=== PATIENT | male | born 1965 | race Caucasian/White ===

== ENCOUNTER 2022-12-18 06:49 | Inpatient (IN) | payer OTHER, SELFPAY ==
[2022-12-18] VITALS (10 sets, daily range): BP systolic 87–153; BP diastolic 49–88; PULSE 118–128; RESP 14–28; TEMP 35.9–37.1; O2SAT 92–100; BMI 21.2
--- NOTE | ~2022-12-18 | XR_ITS ---
XR abdomen obstructive series DATE: 12/19/2022 08:34 INDICATION: Abdominal pain and distention TECHNIQUE: Portable supine and upright AP views COMPARISON: 12/18/2022 CT abdomen pelvis FINDINGS: There is a prominent amount of fecal material within the colon. No bowel obstruction or int raperitoneal free air is detected. No visceromegaly is noted. No significant abnormal calcification i s identified. Bases appear clear. There is a nasogastric tube, distal tip overlying the distal body of the stomach. IMPRESSION: NG tube in distal body of stomach Prominent amount of fecal material in the colon Reviewed, dictated and finalized at [facility] Reviewed, dictated and finalized at [facility].
--- NOTE | ~2022-12-18 | XR_ITS ---
XR chest 1V portable DATE: 12/19/2022 05:23 INDICATION: Cough TECHNIQUE: Portable upright AP chest on 12/19/2022 at 0503 hours COMPARISON: None FINDINGS: There are patchy bilateral pulmonary infiltrates and/or mass densities. Bilateral pneumonia is suspected. Continued radiographic follow-up is recommended to exclude any pulmonary mass lesion. The lungs appear moderately hyperinflated. No pleural effusion is noted. Heart size is normal. NG tube in stomach. Osteopenia. Old left rib fractures. IMPRESSION: Patchy bilateral pulmonary infiltrates and/or mass densities. Bilateral pneumonia is susp ected. Continued radiographic follow-up is recommended to ensure clearing and to exclude any pulmonar y mass lesion Reviewed, dictated and finalized at [facility]. IMPRESSION: Patchy bilateral pulmonary infiltrates and/or mass densities. Bilat eral pneumonia is suspected. Continued radiographic follow-up is recommended to ensure clearing and to exclude any pulmonary mass lesion
--- NOTE | ~2022-12-18 | XR_ITS ---
Portable chest x-ray Comparison: 12/19/2022 Clinical History: Infiltrate Findings: Mild patchy haziness and interstitial prominence in the lungs. No pleural effusion or pneu mothorax. Cardiomediastinal silhouette is stable. Bones and soft tissues are unremarkable. Impression: Patchy pulmonary edema versus infection/pneumonia bilaterally. Correlate clinically. Reviewed, dictated and finalized at [facility]. Impression: Patchy pulmonary edema versus infection/pneumonia bilaterally. Correlate clinic ally.
--- NOTE | ~2022-12-18 | XR_ITS ---
XR_KUBGTUBINS_CR DATE: 12/18/2022 10:13 INDICATION: NG tube placement TECHNIQUE: Portable AP upright view on 12/28/2022 1011 hours COMPARISON: None FINDINGS: A nasogastric tube is noted passing into the distal body of stomach, distal tip not include d in the examination. IMPRESSION: NG tube passing at least as far as the distal body of the stomach, distal tip not include d in the examination Reviewed, dictated and finalized at [facility] Reviewed, dictated and finalized at [facility]. IMPRESSION: NG tube passing at least as far as the distal body of the stomach, distal tip not included in the examination
--- NOTE | ~2022-12-18 | CT_ITS ---
EXAMINATION: CT abdomen pelvis w con DATE: 12/18/2022 09:27 INDICATION: Right upper quadrant abdominal pain TECHNIQUE: Computed tomography (CT) of the abdomen and pelvis was performed with 100 CC Omnipaque 350 intravenous contrast. Automated exposure control and iterative reconstruction technique were employe d. Exam dose: 356.13 mGy-cm total exam DLP. COMPARISON: None. FINDINGS: The lung bases are clear. Normal heart size. No pericardial or pleural effusion. Small sliding hiatal hernia. There is an approximately 4 x 4.5 cm thin-walled cyst with some wall calcification in the pancreatic tail, most likely a pancreatic pseudocyst. The liver, gallbladder, bile ducts, spleen, pancreas, pancreatic duct are otherwise unremarkable. Normal morphology of the adrenal glands. 7.7 mm posterior lower pole left renal cyst. Anterior 4.5 mm mid left renal cyst. 5.4 mm posterior mid right renal cyst. No urinary tract calculus or hydroureteronephrosis. The urinary bladder is unremarkable. Moderate pro state enlargement. There is extensive atherosclerotic calcification but normal caliber of the abdominal aorta. There is atherosclerotic calcification of the origins of the celiac and superior mesenteric and parti cularly both renal arteries. There is prominent bilateral iliac artery calcification. No intraperiton eal or retroperitoneal or pelvic mass lesion or adenopathy or ascites. There is a prominent amount of fecal material throughout the colon but no bowel obstruction. Divertic ulosis of the colon; no CT evidence of diverticulitis. Old posterolateral left eighth and ninth rib fractures. IMPRESSION: Small sliding hiatal hernia 4 x 4.5 cm pancreatic pseudocyst Small bilateral renal cysts Diverticulosis of the colon Reviewed, dictated and finalized at [facility] Reviewed, dictated and finalized at [facility].
[2022-12-18 07:18] LABS: Basophils Absolute Auto 0.1 K/mm3 (0.0-0.1); Basophils Percent Auto 0.4 % (0.2-1.2); Hematocrit 57.5 % (42.0-52.0); Hemoglobin 18.4 g/dL (14.0-18.0); Immature Granulocyte Absolute 0.23 K/mm3 (0.00-0.031); Immature Granulocyte Percent A 1.1 % (0-0.5); Lymphocytes Absolute Auto 2.37 K/mm3 (0.9-3.2); Lymphocytes Percent Auto 11.2 % (18.3-44.2); Mean Platelet Volume 9.2 fl (7.4-10.4); Monocytes Absolute Auto 1.2 K/mm3 (0.1-0.6); Monocytes Percent Auto 5.5 % (2.6-8.5); Neutrophils Absolute Auto 17.3 K/mm3 (1.3-6.7); Neutrophils Percent Auto 81.8 % (45.5-73.1); Platelet Count Result 303 k/mm3 (150-375); Red Blood Count 5.75 M/mm3 (4.6-6.20); Red Cell Distribution Width 13.2 % (11.5-14.5); White Blood Count 21.2 K/mm3 (4.5-10.0)
--- NOTE | 2022-12-18 07:22 | PC.NURSE ---
Pt yelling in triage. Pt wanted to sit next to triage desk, asked to move to waiting area due to patient privacy at desk. Pt started yelling that he is fucked up on pain pills and wants to lay down, called RN a fucking prick and told staff we are treating him like shicyrus . Pt started muttering profanity, was asked by staff to not use profanity, as there are children in the waiting room as well. Pt then yelled loudly to get him a room . Assured by RN that we are working as quickly as possible to see patients.
[2022-12-18 07:25] LABS: Appearance Urine Clear (Clear); Bacteria Urine None Seen /hpf; Bilirubin Urine Negative (Negative); Blood Urine Trace (Negative); Color Urine Yellow (Yellow); Glucose Urine UA 3+ mg/dL (Negative); Ketones Urine 4+ mg/dL (Negative); Leukocyte Esterase Ur Negative LEU/UL (Negative); Nitrate Urine Negative (Negative); Non Pathogenic Casts 0-2; Protein Urine 1+ mg/dL (Negative); RBC Urine 0-2 /hpf (0-2); Specific Grav Ur 1.027 (1.001-1.035); Squamous Epithelial Cell Urine None seen /hpf (Few); Urobilinogen Urine 0.2 mg/dL (<2.0); WBC Urine 0-5 /hpf
[2022-12-18 07:42] LABS: Add Urine Microscopic? YES
[2022-12-18] MEDS: ONDANSETRON INJ 4 MG/2 ML VIAL IV PUSH ×2 (08:05→18:45)
[2022-12-18] MEDS: SODIUM CHLORIDE 0.9% IV 1,000 ML 999 ML IV CONT ×4 (08:05→13:49)
[2022-12-18] MEDS: MORPHINE SULFATE (*CRX) 4 MG/ML INJ IV PUSH ×3 (08:06→21:59)
[2022-12-18 08:11] LABS: Alanine Aminotransferase 26 U/L (6-50); Albumin Level 5.2 g/dL (3.5-5.1); Alkaline Phosphatase 114 U/L (38-126); Aspartate Amino Transferase 27 U/L (17-59); Bilirubin,Total 0.8 mg/dL (0.2-1.3); Blood Urea Nitrogen 33 mg/dL (9-20); Calcium 10.3 mg/dL (8.4-10.2); Carbon Dioxide < 5 mmol/L (22-30); Chloride 91 mmol/L (98-107); Estimated CRCL calculation 52 ml/min; Estimated Glomerular Filt Rate > 60; Glucose 410 mg/dL (65-110); Lipase 37 U/L (23-300); Potassium 5.2 mmol/L (3.4-5.0); Sodium 129 mmol/L (137-145)
--- NOTE | 2022-12-18 08:13 | PC.NURSE ---
Pt yelling out wanting more pain meds. Explained to pt that he had Morphine 5 min ago and needs to give it time to work.
[2022-12-18 09:10] LABS: Alveolar/Arterial O2 Gradient 22.7 mmHg; Base Excess ABG -25.1 mEq/l (+/-2.0); Carboxyhemoglobin 1.7 % THb (0-2.0); Fractional Inspired Oxygen 21 %; HCO3 ABG 4.1 mEq/l (22.0-26.0); Methemoglobin ABG 0.3 %THb (0-1.5); Oxygen Content ABG 22.4 %vol (16.0-22.0); Oxygen Saturation ABG 95.2 % (95.0-100.0); PO2 ABG 107.5 mmHg (80.0-100.0); PO2 FiO2 Ratio Arterial Blood 5.12 %; Total Hemoglobin 16.9 g/dL (12.0-18.0)
[2022-12-18 09:12] LABS: Modified Allen's Test Pass; PCO2 ABG 16.3 mmHg (35.0-45.0); Site Drawn LEFT RADIAL; pH ABG 7.018 (7.350-7.450)
--- NOTE | 2022-12-18 10:00 | PC.NURSE ---
No ICU Bed availability at [facility]
[2022-12-18] MEDS: BENZOCAINE/TETRACAINE SPRAY (*SP) 56 ML AEROSOL 1 SPRAY (10:09)
--- NOTE | 2022-12-18 10:39 | ED.ABDPAIN ---
HPI - Abdominal Pain General Chief Complaint: Abdominal Pain Stated Complaint: abdominal pain x2 weeks Time Seen by Provider: 12/18/22 07:52 History of Present Illness HPI narrative: Patient is a 57-year-old male who presents ER with epigastric abdominal pain. Ongoing over the last 2 weeks. More severe over the last 2 days. Reports he cannot have a bowel movement or pass gas. He has not been vomiting but has had some dry heaves. He has history of diabetes and reports his blood sugars have been elevated despite taking metformin. [facility]. No chest pain or chest pressure. No fevers or chills or sweats. No loss of consciousness. Denies history of previous abdominal surgery or history of bowel obstruction. Related Data Allergies Allergy/AdvReac Type Severity Reaction Status Date / Time No Known Allergies Allergy Verified 12/18/22 07:46 Review of Systems Review of Systems: All systems reviewed & are unremarkable except as noted in HPI and below Constitutional: Constitutional: Denies chills, Reports fatigue and Denies fever(s) ENT: Denies nasal congestion and Denies sore throat Cardiovascular: Cardiovascular: Denies chest pain, Denies rapid heart rate and Denies radiating jaw, neck or arm pain Respiratory: Respiratory: Denies cough, Denies dyspnea and Denies wheezing Gastrointestinal: Gastrointestinal: Reports abdominal pain, Reports constipation, Denies diarrhea and Reports nausea Genitourinary: Genitourinary: Denies dysuria and Denies urinary frequency Musculoskeletal: Musculoskeletal: Reports no additional musculoskeletal complaints Neurologic: Reports system reviewed and no additional complaints, except as documented PMFSH Past Medical History Medical History (Updated 12/18/22 @ 12:42 by Musa Swartz MD) Diabetes Surgical History Surgical History (Updated 12/18/22 @ 12:42 by Musa Swartz MD) No history of previous surgery Exam Narrative: GENERAL: Uncomfortable-appearing, well-nourished, and in mild distress. HEAD: Normocephalic, atraumatic. EYES: PERRL and EOMI. ENT: Dry mucous membranes. NECK: Supple. CHEST: Clear to auscultation. No respiratory distress. HEART: Tachycardic and regular. Normal peripheral pulses. ABDOMEN: Soft, epigastric tenderness with guarding, nondistended, normal active bowel sounds. EXTREMITIES: Normal range of motion. No edema. SKIN: Warm, dry, no rash. NEURO: Alert and oriented x3. PSYCH: Normal mood and affect. Course Course Emergency Course: Patient with a distended abdomen on CT though there is no other acute process seen. NG tube placed and over 1 L of dark contents have been removed. Concern for possible bleeding. Patient is hemoconcentrated. He has received 2 L of IV fluid. I discussed the case with the collar worker who would like 1/3 L of fluid bolus and then the patient also be started on an insulin drip. The hospitalist service has been contacted about management the patient as well. The [facility] was contacted prior to admission and reported they had no ICU beds for patients. Vital Signs Vital signs: Vital Signs Temperature 96.7 F L 12/18/22 06:56 Pulse Rate 118 H 12/18/22 06:56 Respiratory Rate 16 12/18/22 06:56 Blood Pressure 134/63 12/18/22 06:56 Pulse Oximetry 98 12/18/22 06:56 Oxygen Delivery Room Air 12/18/22 06:56 Temperature 96.7 F L 12/18/22 06:56 Pulse Rate 127 H 12/18/22 12:16 Respiratory Rate 20 12/18/22 12:16 Blood Pressure 113/88 12/18/22 12:16 Pulse Oximetry 99 12/18/22 12:16 Oxygen Delivery Room Air 12/18/22 06:56 MDM - Abdominal Pain Lab Data 12/18/22 07:04 12/18/22 07:04 Labs: Lab Results 12/18/22 12/18/22 12/18/22 Range/Units 07:04 07:05 09:09 WBC 21.2 H (4.5-10.0) K/mm3 RBC 5.75 (4.6-6.20) M/mm3 Hgb 18.4 H (14.0-18.0) g/dL Hct 57.5 H (42.0-52.0) % MCV 100.0 (80-100) fl MCH 32.
[2022-12-18 10:40] LABS: Glucose Point of Care 364 mg/dl (65-105)
[2022-12-18] MEDS: PANTOPRAZOLE SODIUM IV 40 MG VIAL 80 MG IV PUSH (11:00)
[2022-12-18] MEDS: PANTOPRAZOLE SODIUM IV 80 MG in SODIUM CHLORIDE 0.9% IV 500 ML 50 MG IV CONT (11:06)
[2022-12-18] MEDS: INSULIN HUMAN REGULAR (*BKC) 100 UNITS in SODIUM CHLORIDE 0.9% IV 99 ML 5.9 UNITS IV CONT (11:11)
[2022-12-18] MEDS: INSULIN HUMAN REGULAR (*BKC) 100 UNITS/ML 9 UNITS IV PUSH (11:12)
[2022-12-18 11:33] LABS: Lactic Acid Reflex 1.2 mmol/L (0.7-2.0)
--- NOTE | 2022-12-18 12:46 | ADMGEN ---
This patient, Sukh Nixon, was admitted to Intensive Care Unit-8. Patient/family oriented to hospital policies and general routines including ID bracelet, bed and alarms, visiting hours, pain management, procedures, bathroom and other care routines, personal items, smoking policy, room service/diet, and visiting hours. Information on how to activate the Rapid Response Team has been discussed. Patient/Family are encouraged to report perceived risks to care and to ask questions if they do not understand what they are told or what they should do.
--- NOTE | 2022-12-18 13:26 | WPDCNINT ---
Assessment and Plan Assessment and plan (1) DKA (diabetic ketoacidosis): Code(s): E11.10 - Type 2 diabetes mellitus with ketoacidosis without coma Status: Acute Assessment and Plan: Patient presented with generalized weakness, nausea, vomiting, abdominal pain -was found to have elevated blood sugars, anion gap metabolic acidosis -was with the DKA, given 3 L IV fluid bolus in the ER and started on insulin infusion per DKA protocol and transferred to ICU for further manage -blood sugars remain elevated, continue insulin infusion per DKA protocol -will transition to long-acting insulin and sliding scale insulin once anion gap is closed -currently NPO except ice chips -will give additional IV fluid bolus in the ICU (which will be his 4th Liter of IV fluids) -have ordered HbA1c (2) Abdominal pain: Code(s): R10.9 - Unspecified abdominal pain Status: Acute Assessment and Plan: Patient stated that he has had abdominal pain for the last 3 weeks which has worsened in the last 3 days along with nausea, vomiting. Decreased p.o. intake, denies any diarrhea, fevers or chills -NG tube inserted in the ER, drained 1.5 L of gastric contents -gastric drainage was coffee-ground so patient was started on Protonix infusion -CBC seems to be hemoconcentrated 12/18: CT scan of the abdomen and pelvis shows small sliding scale hernia, 4 4 x 4.5 cm pancreatic pseudocyst, small bilateral renal cysts, diverticulosis of the colon. Prominent amount of fecal material throughout the colon but no bowel obstruction. (3) Nausea and vomiting: Code(s): R11.2 - Nausea with vomiting, unspecified Status: Acute Assessment and Plan: Nausea and vomiting have resolved (4) Chronic pancreatitis: Code(s): K86.1 - Other chronic pancreatitis Status: Acute Assessment and Plan: Patient has a history of chronic pain naris secondary to possible alcoholism in the past. Patient denies any alcohol for the last 7 years -he states he is on pancreatic enzymes (5) Tobacco abuse: Code(s): Z72.0 - Tobacco use Status: Acute Assessment and Plan: Patient smokes 2 packets per day for many years. Have counseled him on cessation of smoking, he did not feel overly interested in that discussion, though I did t explained to him about the negative of tobacco usage (6) Marijuana use: Code(s): F12.90 - Cannabis use, unspecified, uncomplicated Status: Acute Assessment and Plan: Also counseled him on cessation of marijuana use Plan DVT prophylaxis: Lovenox Stress ulcer prophylaxis: Protonix infusion Nutrition: NPO for now Code Status: Full code Critical Care Time Spent: 48 minutes Due to a high probability of clinically significant, life threatening deterioration, the patient required my highest level of preparedness to intervene emergently and I personally spent this critical care time directly and personally managing the patient. This critical care time included obtaining a history; examining the patient; pulse oximetry; ordering and review of studies; arranging urgent treatment with development of a management plan; evaluation of patient's response to treatment; frequent reassessment; and discussions with other providers. It was exclusive of separately billable procedures and treating other patients and teaching time. Please see Assessment and Plan section and the rest of the note for further information on patient assessment and treatment This dictation may have been done utilizing a voice recognition system. Attempts have been made to correct errors. However, there may be uncorrected grammatical, spelling, and recognitions errors present. Mannequin Mounter Consult Note Consult date: 12/18/22 Reason for consult: Diabetic ketoacidosis, nausea, vomiting, abdominal pain HPI: Sukh Nixon is a 57 year old male with significant past medical history of diabetes on metformin, history of pancr
--- NOTE | 2022-12-18 13:35 | PM.IMHP ---
H&P: HPI History of Present Illness Date/Time: 12/18/22 13:35 Chief Complaint: Abdominal pain. Narrative: This is a 57-year-old male smoker with history of stroke, seizures, chronic pancreatitis, hypertension, type 2 diabetes mellitus and chronic obstructive pulmonary disease who presented to the emergency department via EMS from home for evaluation of abdominal pain. The patient provides the following history. He endorses burning discomfort in the epigastric region for the last couple of weeks however symptoms have gotten worse these last 2 days. He has nausea, dry heaves, and more recently he has started vomiting up dark brown emesis. He endorses constipation and when he does have a bowel movement it is usually only a small amount however he reports that his stools are dark black. He thinks he has an ulcer and believes that he has a remote history of the same. He does take 2 Aleve b.i.d. in addition to ibuprofen daily for arthritic pain. He drinks a lot of coffee though he is unable to qualify. He used to drink heavily but has abstained for the last 7 years. Additionally his glucose has been running high despite taking his metformin as prescribed. He also reports polydipsia and polyuria. His glucose has been running high despite being compliant with his metformin and he endorses polydipsia and polyuria. Preliminary workup in the ED is consistent with diabetic ketoacidosis (pH of 7.018, glucose of 410, elevated anion gap, ketonuria) and he has been admitted to the ICU on an insulin drip. Review of Systems Review of Systems: Twelve systems were reviewed. Reports some weight loss though he cannot qualify. No fever, chills, or sweats. Denies cold and flu symptoms. No chest pain. He does feel a bit short of breath. Denies cough. No lower extremity edema or orthopnea. Denies dysuria. Except as documented, all other systems were reviewed and are negative. [facility] Past Medical History Medical History (Updated 12/18/22 @ 15:16 by Jeannette Champion PA-C) Cerebrovascular accident Chronic pancreatitis Hypertension Marijuana use Tobacco abuse Type 2 diabetes mellitus Surgical History Surgical History No history of previous surgery Family History Family History (Updated 12/18/22 @ 23:17 by Jeannette Champion PA-C) Other Diabetes mellitus Social History Social History (Updated 12/18/22 @ 15:00 by Jeannette Champion PA-C) Social History: Surrogate medical decision maker: Nitin Nixon, son. Code status: Full code. Smoking packs per day: 3 Smoking cigarettes per day: 60.0 Years smoked: 45 Smoking pack-years: 135.00 Smoking status: Current every day smoker Alcohol intake: never Substance use type: marijuana Lack of Transportation: No Lack of Food: Never True Current Housing: I Have Housing Concerned About Future Housing: No Difficulty Paying Gas/Electric Bills: No Difficulty Paying for Meds: No Currently Unemployed: No Education: Grade School Difficulty w/ Childcare or Family Care: No Spiritual care concerns: No Meds Home Medications and Allergies Home Medications Medication Instructions Recorded Confirmed Type Depakote ER 2,000 mg PO HS 12/18/22 12/18/22 History albuterol 90 mcg/actuation aerosol 90 mcg inhalation QID PRN 12/18/22 12/18/22 History inhaler Shortness Of Breath amlodipine 5 mg tablet 5 mg PO DAILY 12/18/22 12/18/22 History atorvastatin 80 mg tablet 80 mg PO HS 12/18/22 12/18/22 History cyclobenzaprine 10 mg tablet 10 mg PO TID PRN Muscle Spasm 12/18/22 12/18/22 History empagliflozin 25 mg tablet 25 mg PO DAILY 12/18/22 12/18/22 History ferrous sulfate 325 mg (65 mg 325 mg PO BID 12/18/22 12/18/22 History iron) tablet fluticasone 250 mcg-salmeterol 50 250 inh inhalation BID 12/18/22 12/18/22 History mcg/dose blistr powdr for inhalation folic acid 1 mg tablet 1 mg PO DAILY 12/18/22 12/18/22 Histo
[2022-12-18] MEDS: SODIUM CHLORIDE 0.9% IV 1,000 ML 125 ML IV CONT (13:49)
[2022-12-18 14:26] LABS: Blood Urea Nitrogen 31 mg/dL (9-20); Carbon Dioxide < 5 mmol/L (22-30); Chloride 105 mmol/L (98-107); Estimated CRCL calculation 53 ml/min; Estimated Glomerular Filt Rate > 60; Glucose 240 mg/dL (65-110); Magnesium 2.5 mg/dL (1.6-2.3); Phosphorus 5.4 mg/dL (2.5-4.5); Potassium 4.9 mmol/L (3.4-5.0); Sodium 138 mmol/L (137-145)
[2022-12-18 14:29] LABS: Glucose Point of Care 275 mg/dl (65-105)
[2022-12-18 14:29] LABS: Glucose Point of Care 308 mg/dl (65-105)
[2022-12-18] MEDS: INSULIN HUMAN REGULAR (*BKC) 100 UNITS in SODIUM CHLORIDE 0.9% IV 99 ML 7.4 UNITS IV CONT (14:30)
[2022-12-18 15:12] LABS: Hemoglobin A1C 12.4 % (<5.7)
[2022-12-18] MEDS: KCL 20 MEQ/D5/0.45% SOD CHL 1,000 ML 150 ML IV CONT ×2 (15:42→23:11)
[2022-12-18] MEDS: NICOTINE (*PBKC) 21 MG PATCH 1 PATCH TRANSDERM (15:43)
[2022-12-18 17:00] LABS: Glucose Point of Care 146 mg/dl (65-105)
[2022-12-18 17:00] LABS: Glucose Point of Care 164 mg/dl (65-105)
[2022-12-18 17:51] LABS: Glucose Point of Care 165 mg/dl (65-105)
[2022-12-18 18:26] LABS: Anion Gap 20 mmol/L (8-16); Blood Urea Nitrogen 22 mg/dL (9-20); Carbon Dioxide 6 mmol/L (22-30); Chloride 111 mmol/L (98-107); Estimated CRCL calculation 74 ml/min; Estimated Glomerular Filt Rate > 60; Glucose 166 mg/dL (65-110); Potassium 4.7 mmol/L (3.4-5.0); Sodium 137 mmol/L (137-145)
[2022-12-18 18:35] LABS: Valproic Acid 33.9 ug/mL (50-120)
[2022-12-18 19:13] LABS: Glucose Point of Care 190 mg/dl (65-105)
[2022-12-18] MEDS: PANTOPRAZOLE SODIUM IV 40 MG VIAL IV PUSH (20:29)
[2022-12-18 20:45] LABS: Glucose Point of Care 200 mg/dl (65-105)
[2022-12-18 21:30] LABS: Glucose Point of Care 209 mg/dl (65-105)
[2022-12-18 22:25] LABS: Glucose Point of Care 212 mg/dl (65-105)
[2022-12-18 23:19] LABS: Anion Gap 14 mmol/L (8-16); Blood Urea Nitrogen 17 mg/dL (9-20); Calcium 7.7 mg/dL (8.4-10.2); Carbon Dioxide 9 mmol/L (22-30); Chloride 111 mmol/L (98-107); Estimated CRCL calculation 85 ml/min; Estimated Glomerular Filt Rate > 60; Glucose 195 mg/dL (65-110); Sodium 134 mmol/L (137-145)
[2022-12-18 23:43] LABS: Glucose Point of Care 213 mg/dl (65-105)
[2022-12-19] VITALS (17 sets, daily range): BP systolic 134–186; BP diastolic 52–93; PULSE 88–122; RESP 13–24; TEMP 36.4–37.1; O2SAT 89–94
[2022-12-19] MEDS: levETIRAcetam 500 MG TABLET 1000 MG PO ×3 (00:17→20:03)
[2022-12-19] MEDS: PROPRANOLOL HCL 20 MG TABLET PO ×3 (00:19→20:04)
[2022-12-19] MEDS: DIVALPROEX SODIUM ER 500 MG TAB.24H 2000 MG PO ×2 (00:20→20:03)
[2022-12-19] MEDS: LATANOPROST 0.005% OP SOLN 2.5 ML BTL 1 DROP EACH EYE ×2 (00:21→20:04)
[2022-12-19] MEDS: MORPHINE SULFATE (*CRX) 4 MG/ML INJ 2 MG IV PUSH ×3 (00:21→06:28)
[2022-12-19 00:38] LABS: Glucose Point of Care 210 mg/dl (65-105)
[2022-12-19 01:19] LABS: Glucose Point of Care 231 mg/dl (65-105)
[2022-12-19 01:35] LABS: Gastric Negative Control Negative; Gastric Positive Control Positive; Occult Blood Gastric Fluid Positive; pH Gastric Fluid 4 (1-8)
[2022-12-19 01:59] LABS: Glucose Point of Care 239 mg/dl (65-105)
[2022-12-19 02:33] LABS: Basophils Percent Auto 0.2 % (0.2-1.2); Eosinophils Percent Auto 0.2 % (0-4.4); Hematocrit 46.8 % (42.0-52.0); Hemoglobin 15.5 g/dL (14.0-18.0); Immature Granulocyte Absolute 0.03 K/mm3 (0.00-0.031); Immature Granulocyte Percent A 0.2 % (0-0.5); Lymphocytes Absolute Auto 0.49 K/mm3 (0.9-3.2); Mean Corpuscular HGB Conc 33.1 g/dl (32-36); Mean Corpuscular Hemoglobin 32.2 pg (26-34); Mean Corpuscular Volume 97.1 fl (80-100); Mean Platelet Volume 8.8 fl (7.4-10.4); Monocytes Absolute Auto 1.3 K/mm3 (0.1-0.6); Monocytes Percent Auto 10.3 % (2.6-8.5); Neutrophils Absolute Auto 10.4 K/mm3 (1.3-6.7); Neutrophils Percent Auto 85.1 % (45.5-73.1); Platelet Count Result 211 k/mm3 (150-375); Red Blood Count 4.82 M/mm3 (4.6-6.20); Red Cell Distribution Width 13.3 % (11.5-14.5); White Blood Count 12.2 K/mm3 (4.5-10.0)
[2022-12-19 02:53] LABS: Alanine Aminotransferase 19 U/L (6-50); Albumin Level 3.6 g/dL (3.5-5.1); Alkaline Phosphatase 68 U/L (38-126); Anion Gap 16 mmol/L (8-16); Aspartate Amino Transferase 23 U/L (17-59); Bilirubin,Total 0.4 mg/dL (0.2-1.3); Blood Urea Nitrogen 14 mg/dL (9-20); Calcium 7.7 mg/dL (8.4-10.2); Carbon Dioxide 10 mmol/L (22-30); Chloride 111 mmol/L (98-107); Estimated CRCL calculation 85 ml/min; Estimated Glomerular Filt Rate > 60; Glucose 206 mg/dL (65-110); Lipase 17 U/L (23-300); Magnesium 2.2 mg/dL (1.6-2.3); Phosphorus 2.2 mg/dL (2.5-4.5); Potassium 4.7 mmol/L (3.4-5.0); Sodium 137 mmol/L (137-145)
[2022-12-19 02:54] LABS: Lactic Acid Reflex 0.6 mmol/L (0.7-2.0)
[2022-12-19 03:04] LABS: Influenza A QL RT-PCR Negative (Negative); Influenza B QL RT-PCR Negative (Negative); SARS-CoV-2 RNA PCR Negative (Negative)
[2022-12-19 03:30] LABS: Glucose Point of Care 225 mg/dl (65-105)
[2022-12-19 04:36] LABS: Glucose Point of Care 250 mg/dl (65-105)
[2022-12-19 05:39] LABS: Glucose Point of Care 228 mg/dl (65-105)
[2022-12-19 05:50] LABS: Appearance Urine Clear (Clear); Bacteria Urine None Seen /hpf; Bilirubin Urine Negative (Negative); Blood Urine Trace (Negative); Color Urine Yellow (Yellow); Glucose Urine UA 3+ mg/dL (Negative); Ketones Urine 3+ mg/dL (Negative); Leukocyte Esterase Ur Negative LEU/UL (NEGATIVE); Nitrate Urine Negative (Negative); Non Pathogenic Casts 0-2; Protein Urine Trace mg/dL (Negative); RBC Urine 0-2 /hpf (0-2); Specific Grav Ur 1.028 (1.001-1.035); Squamous Epithelial Cell Urine None seen /hpf (Few); Urobilinogen Urine 0.2 mg/dL (<2.0); WBC Urine 0-5 /hpf (0-3)
[2022-12-19 05:56] LABS: Add Urine Microscopic? YES
[2022-12-19 06:24] LABS: Glucose Point of Care 232 mg/dl (65-105)
[2022-12-19] MEDS: KCL 20 MEQ/D5/0.45% SOD CHL 1,000 ML 150 ML IV CONT ×3 (06:26→18:39)
[2022-12-19 06:51] LABS: Anion Gap 13 mmol/L (8-16); Blood Urea Nitrogen 13 mg/dL (9-20); Carbon Dioxide 14 mmol/L (22-30); Chloride 110 mmol/L (98-107); Estimated CRCL calculation 85 ml/min; Estimated Glomerular Filt Rate > 60; Glucose 206 mg/dL (65-110); Potassium 4.3 mmol/L (3.4-5.0); Sodium 137 mmol/L (137-145)
[2022-12-19 07:30] LABS: Glucose Point of Care 237 mg/dl (65-105)
[2022-12-19] MEDS: FLUTICASONE/SALMETEROL 115-21 MCG INHALER 1 PUFF 2 PUFF INHALATION ×2 (07:57→20:15)
[2022-12-19] MEDS: UMECLIDINIUM BROMIDE 62.5 MCG ELLIPTA 1 PUFF INHALATION (07:58)
[2022-12-19 08:42] LABS: Glucose Point of Care 228 mg/dl (65-105)
--- NOTE | 2022-12-19 09:25 | WPDINTPN ---
Progress Note: A&P Assessment and Plan (1) DKA (diabetic ketoacidosis): Code(s): E11.10 - Type 2 diabetes mellitus with ketoacidosis without coma Status: Acute Assessment and Plan: Patient presented with generalized weakness, nausea, vomiting, abdominal pain -was found to have elevated blood sugars, anion gap metabolic acidosis -was with the DKA, received adequate IV fluids in the ER and ICU -continue insulin infusion per DKA protocol since anion gap is still elevated -will transition to long-acting insulin and sliding scale insulin once anion gap is closed -currently NPO except ice chips -patient remains tachycardic with elevated anion gap, approx 1 L positive fluid balance, will give additional IV fluids this morning -12/18 hemoglobin A1c is 12.4 this admit (2) Abdominal pain: Code(s): R10.9 - Unspecified abdominal pain Status: Acute Assessment and Plan: Patient stated that he has had abdominal pain for the last 3 weeks which has worsened in the last 3 days along with nausea, vomiting. Decreased p.o. intake, denies any diarrhea, fevers or chills -NG tube inserted in the ER, drained 1.5 L of gastric contents -gastric drainage was coffee-ground so patient was started on Protonix infusion -gastric occult blood is positive -CBC stable -GI has been consulted -obstructive series shows stool in the bowels, started Reglan as patient could have gastroparesis or decreased bowel motility secondary to uncontrolled diabetes 12/18: CT scan of the abdomen and pelvis shows small sliding scale hernia, 4 4 x 4.5 cm pancreatic pseudocyst, small bilateral renal cysts, diverticulosis of the colon. Prominent amount of fecal material throughout the colon but no bowel obstruction. (3) Nausea and vomiting: Code(s): R11.2 - Nausea with vomiting, unspecified Status: Acute Assessment and Plan: Nausea and vomiting have resolved (4) Chronic pancreatitis: Code(s): K86.1 - Other chronic pancreatitis Status: Acute Assessment and Plan: Patient has a history of chronic pain naris secondary to possible alcoholism in the past. Patient denies any alcohol for the last 7 years -he states he is on pancreatic enzymes (5) Tobacco abuse: Code(s): Z72.0 - Tobacco use Status: Acute Assessment and Plan: Patient smokes 2 packets per day for many years. Have counseled him on cessation of smoking, he did not feel overly interested in that discussion, though I did t explained to him about the negative of tobacco usage (6) Marijuana use: Code(s): F12.90 - Cannabis use, unspecified, uncomplicated Status: Acute Assessment and Plan: Also counseled him on cessation of marijuana use (7) Sepsis: Code(s): A41.9 - Sepsis, unspecified organism Status: Acute Assessment and Plan: Patient has been tachycardic, elevated WBC count -chest x-ray this morning: Patchy bilateral pulmonary infiltrates and/or mass densities. Bilateral pneumonia is suspected. Continued radiographic follow-up is recommended to ensure clearing and to exclude any pulmonary mass lesion? -12/19: Lactic acid was 0.6 Will start patient on ceftriaxone and azithromycin (12/19) Plan DVT prophylaxis: Lovenox Stress ulcer prophylaxis: Protonix IV q.12 hours Nutrition: NPO for now except ice chips Code Status: Full code Critical Care Time Spent: 34 minutes Due to a high probability of clinically significant, life threatening deterioration, the patient required my highest level of preparedness to intervene emergently and I personally spent this critical care time directly and personally managing the patient. This critical care time included obtaining a history; examining the patient; pulse oximetry; ordering and review of studies; arranging urgent treatment with development of a management plan; evaluation of patient's response to treatment; frequent reassessment; and discussions with ottor
[2022-12-19] MEDS: NICOTINE (*PBKC) 21 MG PATCH 1 PATCH TRANSDERM (09:32)
[2022-12-19] MEDS: PANTOPRAZOLE SODIUM IV 40 MG VIAL IV PUSH ×2 (09:32→20:04)
[2022-12-19 09:43] LABS: Glucose Point of Care 227 mg/dl (65-105)
[2022-12-19 10:50] LABS: Anion Gap 13 mmol/L (8-16); Blood Urea Nitrogen 11 mg/dL (9-20); Calcium 7.9 mg/dL (8.4-10.2); Carbon Dioxide 14 mmol/L (22-30); Chloride 109 mmol/L (98-107); Estimated CRCL calculation 85 ml/min; Estimated Glomerular Filt Rate > 60; Glucose 209 mg/dL (65-110); Potassium 4.2 mmol/L (3.4-5.0); Sodium 136 mmol/L (137-145)
--- NOTE | 2022-12-19 11:09 | PC.NURSE ---
At 1050, this RN went to assess patient and start new IV to infuse ordered IV fluids and antibiotics. Patient has one IV access that is currently infusing insulin and fluids. This RN turned on the lights in patients room, patient stated are you fucking serious, I was just about to go to sleep . This RN explained to patient that a new IV was needed. This RN educated and explained to patient what I would be doing. This RN tied a tourniquet to patients arm and started cleansing the hand to look for a IV site. Patient started yelling at this RN stating that this RN was too young to know what she was doing and would not be stuck unless an older RN could stick the patient . This RN notified tank charger and spoke to another RN on the floor to see if they could try to obtain an IV access instead. RN to continue to monitor patient.
[2022-12-19 11:10] LABS: Glucose Point of Care 209 mg/dl (65-105)
[2022-12-19 11:53] LABS: Glucose Point of Care 219 mg/dl (65-105)
[2022-12-19] MEDS: LACTATED RINGERS 1,000 ML 999 ML IV CONT (11:59)
[2022-12-19] MEDS: METOCLOPRAMIDE HCL INJ 10 MG/2 ML VIAL 5 MG IV PUSH ×3 (11:59→22:53)
[2022-12-19] MEDS: AZITHROMYCIN 500 MG/NS 250 ML 500 MG/250 ML BAG 250 MG IVPB (12:00)
[2022-12-19] MEDS: cefTRIAXone 2 GM/NS 100 ML 2 GM/100 ML BAG IVPB (12:00)
[2022-12-19 12:44] LABS: Glucose Point of Care 187 mg/dl (65-105)
[2022-12-19 13:27] LABS: Glucose Point of Care 191 mg/dl (65-105)
[2022-12-19 14:13] LABS: Anion Gap 13 mmol/L (8-16); Blood Urea Nitrogen 9 mg/dL (9-20); Calcium 7.9 mg/dL (8.4-10.2); Carbon Dioxide 14 mmol/L (22-30); Chloride 109 mmol/L (98-107); Estimated CRCL calculation 100 ml/min; Estimated Glomerular Filt Rate > 60; Glucose 176 mg/dL (65-110); Potassium 3.7 mmol/L (3.4-5.0); Sodium 136 mmol/L (137-145)
[2022-12-19 14:25] LABS: Glucose Point of Care 197 mg/dl (65-105)
--- NOTE | 2022-12-19 14:52 | PM.IMPN ---
Progress Note: A&P Assessment and Plan (1) DKA (diabetic ketoacidosis): Code(s): E11.10 - Type 2 diabetes mellitus with ketoacidosis without coma Status: Acute (2) Abdominal pain: Code(s): R10.9 - Unspecified abdominal pain Status: Acute (3) Nausea and vomiting: Code(s): R11.2 - Nausea with vomiting, unspecified Status: Acute (4) Chronic pancreatitis: Code(s): K86.1 - Other chronic pancreatitis Status: Acute (5) Tobacco abuse: Code(s): Z72.0 - Tobacco use Status: Acute (6) Marijuana use: Code(s): F12.90 - Cannabis use, unspecified, uncomplicated Status: Acute (7) Sepsis: Code(s): A41.9 - Sepsis, unspecified organism Status: Acute Plan Patient presented with not feeling well and epigastric abdominal pain. Ongoing since past 2 weeks worsened since past 2 days. Dry heaves present but no vomiting. History of diabetes and blood sugar has been elevated. He was tachycardic on presentation in mild distress with epigastric tenderness and guarding CT abdomen and pelvis was unremarkable had small sliding hiatal hernia 4 x 4.5 cm pancreatic pseudocyst. Small bilateral renal cyst. Diverticulosis of the colon. NG tube was placed 9/1 L of dark contents removed. Patient received IV fluid resuscitation. Laboratory workup revealed leukocytosis 21,000 hemoconcentration and severe metabolic acidosis with elevated anion gap. Lactic acid was negative. PH of 7.018 glucose of 408 and elevated anion gap and ketonuia. Diagnosed with DKA. He was started on insulin drip per DKA protocol. Patient was started on Protonix infusion history of chronic pancreatitis secondary to possible alcoholism in the past no alcohol use since past 7 years. DVT prophylaxis with Lovenox History of stroke/seizure/chronic pancreatitis/hypertension/type 2 diabetes mellitus/COPD Reason for consult: Diabetic ketoacidosis, nausea, vomiting, abdominal pain Remains NPO Leukocytosis improved Mild hyponatremia improved Chest x-ray with patchy bilateral pulmonary infiltrates and/or mass densities bilateral pneumonia suspected. Started on ceftriaxone and azithromycin 12/19/2022 Subjective Date/time seen: 12/19/22 14:52 Interval history: Patient presented with not feeling well and epigastric abdominal pain. Ongoing since past 2 weeks worsened since past 2 days. Dry heaves present but no vomiting. History of diabetes and blood sugar has been elevated. He was tachycardic on presentation in mild distress with epigastric tenderness and guarding CT abdomen and pelvis was unremarkable had small sliding hiatal hernia 4 x 4.5 cm pancreatic pseudocyst. Small bilateral renal cyst. Diverticulosis of the colon. NG tube was placed 9/1 L of dark contents removed. Patient received IV fluid resuscitation. Laboratory workup revealed leukocytosis 21,000 hemoconcentration and severe metabolic acidosis with elevated anion gap. Lactic acid was negative. PH of 7.018 glucose of 408 and elevated anion gap and ketonuia. Diagnosed with DKA. He was started on insulin drip per DKA protocol. Patient was started on Protonix infusion history of chronic pancreatitis secondary to possible alcoholism in the past no alcohol use since past 7 years. DVT prophylaxis with Lovenox History of stroke/seizure/chronic pancreatitis/hypertension/type 2 diabetes mellitus/COPD Reason for consult: Diabetic ketoacidosis, nausea, vomiting, abdominal pain Remains NPO Leukocytosis improved Mild hyponatremia improved Chest x-ray with patchy bilateral pulmonary infiltrates and/or mass densities bilateral pneumonia suspected. Started on ceftriaxone and azithromycin 12/19/2022 Review of Systems Review of Systems: All systems reviewed & are unremarkable except as noted in HPI and below Exam Narrative: General: Pleasant gentleman in no acute distress HEENT:? Pupils equal and reactive, sclera is clear, moist oral mucosa Neck: Supple Res
[2022-12-19 15:36] LABS: Glucose Point of Care 179 mg/dl (65-105)
[2022-12-19] MEDS: hydrALAZINE HCL 20 MG/ML VIAL 10 MG IV PUSH ×2 (16:14→22:09)
[2022-12-19 16:35] LABS: Glucose Point of Care 175 mg/dl (65-105)
[2022-12-19] MEDS: ACETAMINOPHEN ELIXIR 325 MG/10.15 ML UDC 650 MG PO ×2 (17:30→22:54)
[2022-12-19 17:35] LABS: Glucose Point of Care 165 mg/dl (65-105)
[2022-12-19 18:23] LABS: Anion Gap 12 mmol/L (8-16); Blood Urea Nitrogen 8 mg/dL (9-20); Calcium 7.6 mg/dL (8.4-10.2); Carbon Dioxide 14 mmol/L (22-30); Chloride 107 mmol/L (98-107); Estimated CRCL calculation 122 ml/min; Estimated Glomerular Filt Rate > 60; Glucose 181 mg/dL (65-110); Potassium 3.5 mmol/L (3.4-5.0); Sodium 133 mmol/L (137-145)
[2022-12-19 18:46] LABS: Glucose Point of Care 181 mg/dl (65-105)
[2022-12-19] MEDS: POTASSIUM CHLORIDE 20 MEQ ER TABLET 40 MEQ PO (19:50)
[2022-12-19] MEDS: INSULIN GLARGINE (*BKC) 100 UNITS/ML 20 UNITS SUB-Q (19:50)
[2022-12-20] VITALS (19 sets, daily range): BP systolic 116–178; BP diastolic 60–82; PULSE 96–117; RESP 14–24; TEMP 36.4–37.2; O2SAT 91–98; BMI 22.0
[2022-12-20 00:34] LABS: Glucose Point of Care 175 mg/dl (65-105)
[2022-12-20 04:55] LABS: Basophils Percent Auto 0.3 % (0.2-1.2); Eosinophils Percent Auto 0.4 % (0-4.4); Hematocrit 47.6 % (42.0-52.0); Hemoglobin 16.1 g/dL (14.0-18.0); Immature Granulocyte Absolute 0.06 K/mm3 (0.00-0.031); Immature Granulocyte Percent A 0.5 % (0-0.5); Lymphocytes Absolute Auto 0.96 K/mm3 (0.9-3.2); Lymphocytes Percent Auto 8.7 % (18.3-44.2); Mean Corpuscular HGB Conc 33.8 g/dl (32-36); Mean Corpuscular Hemoglobin 31.6 pg (26-34); Mean Corpuscular Volume 93.3 fl (80-100); Mean Platelet Volume 8.9 fl (7.4-10.4); Monocytes Percent Auto 8.8 % (2.6-8.5); Neutrophils Percent Auto 81.3 % (45.5-73.1); Platelet Count Result 172 k/mm3 (150-375); Red Cell Distribution Width 13.8 % (11.5-14.5); White Blood Count 11.1 K/mm3 (4.5-10.0)
[2022-12-20 05:04] LABS: Alanine Aminotransferase 19 U/L (6-50); Albumin Level 3.7 g/dL (3.5-5.1); Alkaline Phosphatase 61 U/L (38-126); Anion Gap 14 mmol/L (8-16); Aspartate Amino Transferase 29 U/L (17-59); Bilirubin,Total 0.5 mg/dL (0.2-1.3); Blood Urea Nitrogen 7 mg/dL (9-20); Calcium 8.5 mg/dL (8.4-10.2); Carbon Dioxide 15 mmol/L (22-30); Chloride 105 mmol/L (98-107); Estimated CRCL calculation 122 ml/min; Estimated Glomerular Filt Rate > 60; Glucose 99 mg/dL (65-110); Magnesium 2.1 mg/dL (1.6-2.3); Phosphorus 1.2 mg/dL (2.5-4.5); Potassium 3.3 mmol/L (3.4-5.0); Sodium 134 mmol/L (137-145)
--- NOTE | 2022-12-20 07:03 | WPDGICN ---
Assessment and Plan Assessment and plan (1) Nausea and vomiting: Code(s): R11.2 - Nausea with vomiting, unspecified Status: Acute Assessment and Plan: this has been going on for about 2 weeks. Some of the emesis was dark brown. [facility] have been planning to perform endoscopy in the next couple weeks. (2) Epigastric abdominal pain: Code(s): R10.13 - Epigastric pain Status: Acute Assessment and Plan: Not having pain this morning but he has often on had pain for the past month or so. He does take NSAIDs every day and very likely has peptic ulcer disease. (3) Chronic pancreatitis: Code(s): K86.1 - Other chronic pancreatitis Status: Acute Assessment and Plan: There is a past history of heavy alcohol use. A CT scan does show a pseudocyst. His lipase is in the normal range. (4) Coffee ground emesis: Code(s): K92.0 - Hematemesis Status: Acute Assessment and Plan: There is minimal material coming out the NG tube this morning, mostly dark and bilious. I will remove the NG tube. EGD will be performed later today to determine source of blood loss (5) DKA (diabetic ketoacidosis): Code(s): E11.10 - Type 2 diabetes mellitus with ketoacidosis without coma Status: Acute Assessment and Plan: he was very acidotic on admission with a elevated blood glucose. After insulin drip his blood sugars have become much more reasonable. He is on multiple oral meds at home including Jardiance, metformin, pioglitazone, but not on insulin far as I can tell. This morning's blood sugars 86. Plan Remove NG tube EGD today. GI Consult Note Consult date/time: 12/20/22 07:03 HPI: Sukh Nixon is a 57 year old male Presented to the hospital here with several symptoms. Among others he has been nauseated and vomiting for the past couple of weeks. He has had epigastric pain as well. An NG-tube was placed and he did have some coffee-ground material from that. He does take quite a bit of a anti-inflammatory medication, at least 2 Aleve tablets twice a day and ibuprofen as well. He does this because of severe back pain. Admission he was in DKA. Close was over 400 pH was 7.01 a. He had been started on an insulin drip, But that has been discontinued. initial hemoglobin was over 18 but is now down to 16.1. He states that at the [facility] they were treating him for anemia. He Had taking iron for a while states that it was not effective. he is denying any abdominal pain at present time. He he had a bowel movement this morning which was dark brown but not black. Review of Systems Review of Systems: All systems reviewed & are unremarkable except as noted in HPI and below PMFSH Past Medical History Medical History Cerebrovascular accident Chronic pancreatitis Hypertension Marijuana use Tobacco abuse Type 2 diabetes mellitus Surgical History Surgical History No history of previous surgery Family History Family History Other Diabetes mellitus Social History Social History Social History: Surrogate medical decision maker: Nitin Nixon, son. Code status: Full code. Smoking packs per day: 3 Smoking cigarettes per day: 60.0 Years smoked: 45 Smoking pack-years: 135.00 Smoking status: Current every day smoker Alcohol intake: never Substance use type: marijuana Lack of Transportation: No Lack of Food: Never True Current Housing: I Have Housing Concerned About Future Housing: No Difficulty Paying Gas/Electric Bills: No Difficulty Paying for Meds: No Currently Unemployed: No Education: Grade School Difficulty w/ Childcare or Family Care: No Spiritual car
[2022-12-20 07:39] LABS: Glucose Point of Care 86 mg/dl (65-105)
[2022-12-20] MEDS: FLUTICASONE/SALMETEROL 115-21 MCG INHALER 1 PUFF 2 PUFF INHALATION ×2 (08:13→19:23)
[2022-12-20] MEDS: UMECLIDINIUM BROMIDE 62.5 MCG ELLIPTA 1 PUFF INHALATION (08:13)
[2022-12-20] MEDS: METOCLOPRAMIDE HCL INJ 10 MG/2 ML VIAL 5 MG IV PUSH (08:37)
[2022-12-20] MEDS: PANTOPRAZOLE SODIUM IV 40 MG VIAL IV PUSH ×2 (08:37→21:40)
[2022-12-20] MEDS: cefTRIAXone 2 GM/NS 100 ML 2 GM/100 ML BAG IVPB (08:38)
[2022-12-20] MEDS: AZITHROMYCIN 500 MG/NS 250 ML 500 MG/250 ML BAG 250 MG IVPB (08:38)
[2022-12-20] MEDS: NICOTINE (*PBKC) 21 MG PATCH 1 PATCH TRANSDERM (08:39)
[2022-12-20 11:58] LABS: Glucose Point of Care 91 mg/dl (65-105)
--- NOTE | 2022-12-20 12:47 | WPDINTPN ---
Progress Note: A&P Assessment and Plan (1) DKA (diabetic ketoacidosis): Code(s): E11.10 - Type 2 diabetes mellitus with ketoacidosis without coma Status: Acute Assessment and Plan: Patient presented with generalized weakness, nausea, vomiting, abdominal pain -was found to have elevated blood sugars, anion gap metabolic acidosis -was with the DKA, received adequate IV fluids in the ER and ICU -insulin infusion was discontinued patient was transition to long-acting insulin, Lantus -patient also on sliding scale insulin and Accu-Chek -currently NPO due to EGD procedure today -when able to take p.o., patient will be placed on diabetic diet -12/18 hemoglobin A1c is 12.4 this admission (2) Abdominal pain: Code(s): R10.9 - Unspecified abdominal pain Status: Acute Assessment and Plan: Patient stated that he has had abdominal pain for the last 3 weeks which has worsened in the last 3 days along with nausea, vomiting. Decreased p.o. intake, denies any diarrhea, fevers or chills -NG tube inserted in the ER, drained 1.5 L of gastric contents -gastric drainage was coffee-ground so patient was started on Protonix infusion -gastric occult blood is positive -CBC stable -GI has been consulted -obstructive series shows stool in the bowels, started Reglan as patient could have gastroparesis or decreased bowel motility secondary to uncontrolled diabetes -patient did have 2 large bowel movements with improvement in his abdominal pain, he continues to have epigastric burning -patient does take Aleve and ibuprofen on daily basis 12/18: CT scan of the abdomen and pelvis shows small sliding scale hernia, 4 4 x 4.5 cm pancreatic pseudocyst, small bilateral renal cysts, diverticulosis of the colon. Prominent amount of fecal material throughout the colon but no bowel obstruction. (3) Nausea and vomiting: Code(s): R11.2 - Nausea with vomiting, unspecified Status: Acute Assessment and Plan: Nausea and vomiting have resolved (4) Chronic pancreatitis: Code(s): K86.1 - Other chronic pancreatitis Status: Acute Assessment and Plan: Patient has a history of chronic pancreatitis secondary to possible alcoholism in the past. Patient denies any alcohol for the last 7 years -he states he is on pancreatic enzymes (5) Tobacco abuse: Code(s): Z72.0 - Tobacco use Status: Acute Assessment and Plan: Patient smokes 2 packets per day for many years. -on nicotine patch Have counseled him on cessation of smoking, he did not feel overly interested in that discussion, though I did t explained to him about the negative of tobacco usage (6) Marijuana use: Code(s): F12.90 - Cannabis use, unspecified, uncomplicated Status: Acute Assessment and Plan: Also counseled him on cessation of marijuana use (7) Sepsis: Code(s): A41.9 - Sepsis, unspecified organism Status: Acute Assessment and Plan: Patient has been tachycardic, elevated WBC count -chest x-ray this morning: Patchy bilateral pulmonary infiltrates and/or mass densities. Bilateral pneumonia is suspected. Continued radiographic follow-up is recommended to ensure clearing and to exclude any pulmonary mass lesion? -12/19: Lactic acid was 0.6 Continue ceftriaxone and azithromycin (12/19) -sputum cultures have been obtained and pending Plan DVT prophylaxis: Lovenox on hold, continue SCDs Stress ulcer prophylaxis: Protonix IV q.12 hours Nutrition: NPO for EGD today Code Status: Full code Critical Care Time Spent: 31 minutes May transfer patient to medical/med-tele, per hospitalist Due to a high probability of clinically significant, life threatening deterioration, the patient required my highest level of preparedness to intervene emergently and I personally spent this critical care time directly and personally managing the patient. This critical care time included obtaining a history; exam
--- NOTE | 2022-12-20 13:09 | WPDANESEPPF ---
Anes - Initial Pre Proc Eval Procedure: Operation Date: 12/20/22 14:15 Proposed Procedures p Esophagogastroduodenoscopy - Demetrio Carpio MD Date/Time: 12/20/22 13:09 Surgeon: Pasquale Falcon MD Pre Op Diagnosis: dka,gastric distension Patient Data Age: 57 Gender: M Height: 1.57 m Weight: 54.6 kg Last Vital Signs Temp 37.0 C 12/20/22 12:00 Pulse 109 H 12/20/22 12:00 Resp 18 12/20/22 12:00 BP 154/73 H 12/20/22 12:00 Pulse Ox 93 12/20/22 12:00 O2 Del Method Room Air 12/20/22 08:18 FiO2 21 12/20/22 08:00 Allergies Allergy/AdvReac Type Severity Reaction Status Date / Time gabapentin Allergy Unknown Verified 12/18/22 16:20 Home Medications Medication Instructions Recorded Confirmed Type Depakote ER 2,000 mg PO HS 12/18/22 12/18/22 History albuterol 90 mcg/actuation aerosol 90 mcg inhalation QID PRN 12/18/22 12/18/22 History inhaler Shortness Of Breath amlodipine 5 mg tablet 5 mg PO DAILY 12/18/22 12/18/22 History atorvastatin 80 mg tablet 80 mg PO HS 12/18/22 12/18/22 History cyclobenzaprine 10 mg tablet 10 mg PO TID PRN Muscle Spasm 12/18/22 12/18/22 History empagliflozin 25 mg tablet 25 mg PO DAILY 12/18/22 12/18/22 History ferrous sulfate 325 mg (65 mg 325 mg PO BID 12/18/22 12/18/22 History iron) tablet fluticasone 250 mcg-salmeterol 50 250 inh inhalation BID 12/18/22 12/18/22 History mcg/dose blistr powdr for inhalation folic acid 1 mg tablet 1 mg PO DAILY 12/18/22 12/18/22 History hydroxyzine HCl 25 mg tablet 25 mg PO BID PRN Anxiety 12/18/22 12/18/22 History latanoprost 0.005 % eye drops 0.005 drp EACH EYE HS 12/18/22 12/18/22 History levetiracetam 1,000 mg tablet 1,000 mg PO BID 12/18/22 12/18/22 History (Keppra) lisinopril 2.5 mg tablet 2.5 mg PO DAILY 12/18/22 12/18/22 History magnesium oxide 400 mg PO BID 12/18/22 12/18/22 History mecobalamin (vitamin B12) 500 mcg 500 mcg PO DAILY 12/18/22 12/18/22 History chewable tablet melatonin 3 mg tablet 3 mg PO HS 12/18/22 12/18/22 History metformin 1,000 mg tablet 1,000 mg PO BID 12/18/22 12/18/22 History mirtazapine 30 mg tablet 30 mg PO HS 12/18/22 12/18/22 History pantoprazole 20 mg tablet,delayed 20 mg PO QAM 12/18/22 12/18/22 History release pioglitazone 45 mg tablet 50 mg PO DAILY 12/18/22 12/18/22 History primidone 50 mg tablet See Rx Instructions .Route .COMPLEX 12/18/22 12/18/22 History propranolol 20 mg tablet 20 mg PO Q12H 12/18/22 12/18/22 History thiamine HCl (vitamin B1) 100 mg 100 mg PO DAILY 12/18/22 12/18/22 History tablet tiotropium bromide 1.25 2 puff inhalation DAILY 12/18/22 12/18/22 History mcg/actuation mist for inhalation (Spiriva Respimat) trazodone 100 mg tablet 200 mg PO HS 12/18/22 12/18/22 History Laboratory Tests 12/19/22 12/19/22 12/19/22 13:23 13:57 14:21 WBC RBC Hgb Hct MCV MCH MCHC RDW Plt Count MPV Immature Gran % (Auto) Neut % (Auto) Lymph % (Auto) [place] % (Auto) Eos % (Auto) Baso % (Auto) Lymph # (Auto) [place] # (Auto) Eos # (Auto) Baso # (Auto) Abs Immat Gran (auto) Absolute Neuts (auto) Absolute Nucleated RBC Nucleated RBC % Sodium 136 L mmol/L (137-145) Potassium 3.7 mmol/L (3.4-5.0) Chloride 109 H mmol/L (98-107) Carbon Dioxide 14 L mmol/L (22-30) Anion Gap 13 mmol/L (8-16) BUN 9 mg/dL (9-20) Creatinine 0.50 L mg/dL (0.7-1.3) Estim Creat Clear Calc 100 ml/min Estimated GFR > 60 (59 - ) Glucose 176 H mg/dL (65-110) POC Capillary Glucose 191 H mg/dl 197 H mg/dl (65-105) (65-105) Calcium 7.9 L mg/dL (8.4-10.2) Phos
--- NOTE | 2022-12-20 13:18 | PC.NURSE ---
To GI Lab per wheelchair. Report given to SANJIV Naqvi.
[2022-12-20] MEDS: LACTATED RINGERS 1,000 ML 150 ML IV CONT (13:40)
[2022-12-20 13:48] LABS: Glucose Point of Care 78 mg/dl (65-105)
--- NOTE | 2022-12-20 14:06 | PCDIET ---
Nutrition note: Screen for DKA admission. Pt is out of room for EGD today. Seen by medical educator. Will follow up with patient tomorrow to offer diabetic nutrition education.
[2022-12-20] MEDS: PROPRANOLOL HCL 20 MG TABLET PO ×2 (15:43→21:40)
[2022-12-20] MEDS: POTASSIUM PHOS/SODIUM PHOS 250 MG TABLET PO (15:44)
[2022-12-20] MEDS: POTASSIUM CHLORIDE 20 MEQ PACKET (FOR LIQUID) 40 MEQ PO (15:44)
[2022-12-20] MEDS: levETIRAcetam 500 MG TABLET 1000 MG PO ×2 (15:44→21:39)
--- NOTE | 2022-12-20 16:14 | PM.IMPN ---
Progress Note: A&P Assessment and Plan (1) DKA (diabetic ketoacidosis): Code(s): E11.10 - Type 2 diabetes mellitus with ketoacidosis without coma Status: Acute (2) Abdominal pain: Code(s): R10.9 - Unspecified abdominal pain Status: Acute (3) Nausea and vomiting: Code(s): R11.2 - Nausea with vomiting, unspecified Status: Acute (4) Chronic pancreatitis: Code(s): K86.1 - Other chronic pancreatitis Status: Acute (5) Tobacco abuse: Code(s): Z72.0 - Tobacco use Status: Acute (6) Marijuana use: Code(s): F12.90 - Cannabis use, unspecified, uncomplicated Status: Acute (7) Sepsis: Code(s): A41.9 - Sepsis, unspecified organism Status: Acute Plan Patient presented with not feeling well and epigastric abdominal pain. Ongoing since past 2 weeks worsened since past 2 days. Dry heaves present but no vomiting. History of diabetes and blood sugar has been elevated. He was tachycardic on presentation in mild distress with epigastric tenderness and guarding CT abdomen and pelvis was unremarkable had small sliding hiatal hernia 4 x 4.5 cm pancreatic pseudocyst. Small bilateral renal cyst. Diverticulosis of the colon. NG tube was placed 9/1 L of dark contents removed. Patient received IV fluid resuscitation. Laboratory workup revealed leukocytosis 21,000 hemoconcentration and severe metabolic acidosis with elevated anion gap. Lactic acid was negative. PH of 7.018 glucose of 408 and elevated anion gap and ketonuia. Diagnosed with DKA. He was started on insulin drip per DKA protocol. Patient was started on Protonix infusion history of chronic pancreatitis secondary to possible alcoholism in the past no alcohol use since past 7 years. DVT prophylaxis with Lovenox History of stroke/seizure/chronic pancreatitis/hypertension/type 2 diabetes mellitus/COPD Reason for consult: Diabetic ketoacidosis, nausea, vomiting, abdominal pain Leukocytosis improved Mild hyponatremia improved Chest x-ray with patchy bilateral pulmonary infiltrates and/or mass densities bilateral pneumonia suspected. Started on ceftriaxone and azithromycin 12/19/2022 DKA resolved switched to Lantus A1c at 12.4. Continue to monitor Accu-Cheks and adjust as needed Status post EGD 12/20/2022: Reflux esophagitis and esophageal ulcer without bleeding. On PPI DVT prophylaxis Lovenox Subjective Date/time seen: 12/20/22 16:14 Interval history: Patient presented with not feeling well and epigastric abdominal pain. Ongoing since past 2 weeks worsened since past 2 days. Dry heaves present but no vomiting. History of diabetes and blood sugar has been elevated. He was tachycardic on presentation in mild distress with epigastric tenderness and guarding CT abdomen and pelvis was unremarkable had small sliding hiatal hernia 4 x 4.5 cm pancreatic pseudocyst. Small bilateral renal cyst. Diverticulosis of the colon. NG tube was placed 9/1 L of dark contents removed. Patient received IV fluid resuscitation. Laboratory workup revealed leukocytosis 21,000 hemoconcentration and severe metabolic acidosis with elevated anion gap. Lactic acid was negative. PH of 7.018 glucose of 408 and elevated anion gap and ketonuia. Diagnosed with DKA. He was started on insulin drip per DKA protocol. Patient was started on Protonix infusion history of chronic pancreatitis secondary to possible alcoholism in the past no alcohol use since past 7 years. DVT prophylaxis with Lovenox History of stroke/seizure/chronic pancreatitis/hypertension/type 2 diabetes mellitus/COPD Reason for consult: Diabetic ketoacidosis, nausea, vomiting, abdominal pain Remains NPO Leukocytosis improved Mild hyponatremia improved Chest x-ray with patchy bilateral pulmonary infiltrates and/or mass densities bilateral pneumonia suspected. Started on ceftriaxone and azithromycin 12/19/2022 12/20/2022 off insulin drip now. Started on Lantus. Underwent EGD
--- NOTE | 2022-12-20 16:34 | PC.NURSE ---
This patient, Sukh Nixon, was transferred to [facility] on 12/20/22 at 1634. Personal belongings sent with patient. Report given to SANJIV Osorio. Appropriate documentation sent with patient.
[2022-12-20] MEDS: INSULIN ASPART (*BKC) 100 UNITS/ML SUB-Q (16:51)
[2022-12-20 16:57] LABS: Glucose Point of Care 270 mg/dl (65-105)
[2022-12-20] MEDS: DIVALPROEX SODIUM ER 500 MG TAB.24H 2000 MG PO (21:40)
[2022-12-20] MEDS: INSULIN GLARGINE (*BKC) 100 UNITS/ML 20 UNITS SUB-Q (21:41)
[2022-12-20] MEDS: LATANOPROST 0.005% OP SOLN 2.5 ML BTL 1 DROP EACH EYE (21:42)
[2022-12-20] MEDS: ACETAMINOPHEN ELIXIR 325 MG/10.15 ML UDC 650 MG PO (22:29)
[2022-12-20 23:23] LABS: Glucose Point of Care 165 mg/dl (65-105)
[2022-12-21 06:00] VITALS: BP 114/90; PULSE 96; RESP 12; TEMP 36.4; O2SAT 97
[2022-12-21 07:02] LABS: Alanine Aminotransferase 18 U/L (6-50); Albumin Level 3.7 g/dL (3.5-5.1); Alkaline Phosphatase 87 U/L (38-126); Anion Gap 12 mmol/L (8-16); Aspartate Amino Transferase 29 U/L (17-59); Bilirubin,Total 0.7 mg/dL (0.2-1.3); Blood Urea Nitrogen 10 mg/dL (9-20); Carbon Dioxide 25 mmol/L (22-30); Chloride 100 mmol/L (98-107); Estimated CRCL calculation 44 ml/min; Estimated Glomerular Filt Rate > 60; Glucose 137 mg/dL (65-110); Magnesium 2.2 mg/dL (1.6-2.3); Phosphorus 1.6 mg/dL (2.5-4.5); Potassium 3.3 mmol/L (3.4-5.0); Sodium 137 mmol/L (137-145)
[2022-12-21 07:05] LABS: Basophils Percent Auto 0.2 % (0.2-1.2); Eosinophils Absolute Auto 0.1 K/mm3 (0-0.3); Eosinophils Percent Auto 0.6 % (0-4.4); Hematocrit 45.9 % (42.0-52.0); Hemoglobin 16.1 g/dL (14.0-18.0); Immature Granulocyte Absolute 0.03 K/mm3 (0.00-0.031); Immature Granulocyte Percent A 0.3 % (0-0.5); Lymphocytes Absolute Auto 0.83 K/mm3 (0.9-3.2); Lymphocytes Percent Auto 9.3 % (18.3-44.2); Mean Corpuscular HGB Conc 35.1 g/dl (32-36); Mean Corpuscular Volume 91.3 fl (80-100); Mean Platelet Volume 8.8 fl (7.4-10.4); Monocytes Absolute Auto 0.6 K/mm3 (0.1-0.6); Monocytes Percent Auto 6.5 % (2.6-8.5); Neutrophils Absolute Auto 7.4 K/mm3 (1.3-6.7); Neutrophils Percent Auto 83.1 % (45.5-73.1); Platelet Count Result 166 k/mm3 (150-375); Red Blood Count 5.03 M/mm3 (4.6-6.20); Red Cell Distribution Width 13.8 % (11.5-14.5); White Blood Count 8.9 K/mm3 (4.5-10.0)
--- NOTE | 2022-12-21 07:40 | WPDANESPN ---
Anes - Prog Note Post-Op Date/Time: 12/21/22 07:40 Cardiovascular status: normal Respiratory status: normal Airway patency: baseline Mental status: baseline Post-Op hydration status: normal Vital Signs: Last Vital Signs Temp 97.5 F L 12/21/22 06:00 Pulse 96 12/21/22 06:00 Resp 12 12/21/22 06:00 BP 114/90 12/21/22 06:00 Pulse Ox 97 12/21/22 06:00 O2 Del Method Room Air 12/20/22 20:00 FiO2 21 12/20/22 08:00 Pain Score (VAS): 0 at rest. 10 with movement I/O: Intake & Output 12/20/22 12/20/22 12/21/22 15:59 23:59 07:59 Intake Total 50 600 1360 Output Total 900 1100 Balance 50 -300 260 Laboratory Tests 12/21/22 06:18 12/21/22 06:18 12/20/22 12/20/22 12/20/22 11:40 13:26 16:48 WBC RBC Hgb Hct MCV MCH MCHC RDW Plt Count MPV Immature Gran % (Auto) Neut % (Auto) Lymph % (Auto) [place] % (Auto) Eos % (Auto) Baso % (Auto) Lymph # (Auto) [place] # (Auto) Eos # (Auto) Baso # (Auto) Abs Immat Gran (auto) Absolute Neuts (auto) Absolute Nucleated RBC Nucleated RBC % Sodium Potassium Chloride Carbon Dioxide Anion Gap BUN Creatinine Estim Creat Clear Calc Estimated GFR Glucose POC Capillary Glucose 91 78 270 H Calcium Phosphorus Magnesium Total Bilirubin AST ALT Alkaline Phosphatase Total Protein Albumin 12/20/22 12/21/22 21:12 06:18 WBC 8.9 RBC 5.03 Hgb 16.1 Hct 45.9 MCV 91.3 MCH 32.0 MCHC 35.1 RDW 13.8 Plt Count 166 MPV 8.8 Immature Gran % (Auto) 0.3 Neut % (Auto) 83.1 H Lymph % (Auto) 9.3 L [place] % (Auto) 6.5 Eos % (Auto) 0.6 Baso % (Auto) 0.2 Lymph # (Auto) 0.83 L [place] # (Auto) 0.6 Eos # (Auto) 0.1 Baso # (Auto) 0.0 Abs Immat Gran (auto) 0.03 Absolute Neuts (auto) 7.4 H Absolute Nucleated RBC 0.0 Nucleated RBC % 0.0 Sodium 137 Potassium 3.3 L Chloride 100 Carbon Dioxide 25 Anion Gap 12 BUN 10 Creatinine 0.50 L Estim Creat Clear Calc 44 Estimated GFR > 60 Glucose 137 H POC Capillary Glucose 165 H Calcium 9.0 Phosphorus 1.6 L Magnesium 2.2 Total Bilirubin 0.7 AST 29 ALT 18 Alkaline Phosphatase 87 Total Protein 7.0 Albumin 3.7 Post-procedural complaints: none Patient Feedback: Patient satisfied with anesthetic care.
[2022-12-21 07:59] LABS: Glucose Point of Care 114 mg/dl (65-105)
[2022-12-21 08:41] VITALS: PULSE 96
[2022-12-21] MEDS: PROPRANOLOL HCL 20 MG TABLET PO ×2 (08:41→20:43)
[2022-12-21] MEDS: levETIRAcetam 500 MG TABLET 1000 MG PO ×2 (08:41→20:43)
[2022-12-21] MEDS: AZITHROMYCIN 500 MG/NS 250 ML 500 MG/250 ML BAG 250 MG IVPB (08:42)
[2022-12-21] MEDS: PANTOPRAZOLE SODIUM IV 40 MG VIAL IV PUSH (09:03)
[2022-12-21] MEDS: POTASSIUM PHOS/SODIUM PHOS 250 MG TABLET PO (09:11)
[2022-12-21 10:45] LABS: Glucose Point of Care 310 mg/dl (65-105)
[2022-12-21 11:31] LABS: Glucose Point of Care 254 mg/dl (65-105)
[2022-12-21] MEDS: ACETAMINOPHEN ELIXIR 325 MG/10.15 ML UDC 650 MG PO ×2 (11:34→18:18)
--- NOTE | 2022-12-21 12:01 | PM.IMPN ---
Progress Note: A&P Assessment and Plan (1) DKA (diabetic ketoacidosis): Code(s): E11.10 - Type 2 diabetes mellitus with ketoacidosis without coma Status: Acute (2) Abdominal pain: Code(s): R10.9 - Unspecified abdominal pain Status: Acute (3) Nausea and vomiting: Code(s): R11.2 - Nausea with vomiting, unspecified Status: Acute (4) Chronic pancreatitis: Code(s): K86.1 - Other chronic pancreatitis Status: Acute (5) Tobacco abuse: Code(s): Z72.0 - Tobacco use Status: Acute (6) Marijuana use: Code(s): F12.90 - Cannabis use, unspecified, uncomplicated Status: Acute (7) Sepsis: Code(s): A41.9 - Sepsis, unspecified organism Status: Acute Plan Patient presented with not feeling well and epigastric abdominal pain. Ongoing since past 2 weeks worsened since past 2 days. Dry heaves present but no vomiting. History of diabetes and blood sugar has been elevated. He was tachycardic on presentation in mild distress with epigastric tenderness and guarding CT abdomen and pelvis was unremarkable had small sliding hiatal hernia 4 x 4.5 cm pancreatic pseudocyst. Small bilateral renal cyst. Diverticulosis of the colon. NG tube was placed 9/1 L of dark contents removed. Patient received IV fluid resuscitation. Laboratory workup revealed leukocytosis 21,000 hemoconcentration and severe metabolic acidosis with elevated anion gap. Lactic acid was negative. PH of 7.018 glucose of 408 and elevated anion gap and ketonuia. Diagnosed with DKA. He was started on insulin drip per DKA protocol. Patient was started on Protonix infusion history of chronic pancreatitis secondary to possible alcoholism in the past no alcohol use since past 7 years. DVT prophylaxis with Lovenox History of stroke/seizure/chronic pancreatitis/hypertension/type 2 diabetes mellitus/COPD Leukocytosis resolved Mild hyponatremia improved Chest x-ray with patchy bilateral pulmonary infiltrates and/or mass densities bilateral pneumonia suspected. Started on ceftriaxone and azithromycin 12/19/2022. Continue same DKA resolved switched to Lantus A1c at 12.4. Continue to monitor Accu-Cheks and adjust as needed. Need insulin teaching prior to discharge. 20 units of Lantus. Oral medication for prandial coverage at discharge planned. He is on metformin and Jardiance at home will resume those today. Status post EGD 12/20/2022: Reflux esophagitis and esophageal ulcer without bleeding. On PPI diet back to regular. DVT prophylaxis Lovenox PT OT to see Will resume his prior medication Plan DC in 1-2 days depending on the progress telehealth nurse educator to see. He lives with his sister who can help with insulin needs to see coverage for CGM as he has tremors and not able to check his blood sugar adequately. Subjective Date/time seen: 12/21/22 12:01 Interval history: Patient presented with not feeling well and epigastric abdominal pain. Ongoing since past 2 weeks worsened since past 2 days. Dry heaves present but no vomiting. History of diabetes and blood sugar has been elevated. He was tachycardic on presentation in mild distress with epigastric tenderness and guarding CT abdomen and pelvis was unremarkable had small sliding hiatal hernia 4 x 4.5 cm pancreatic pseudocyst. Small bilateral renal cyst. Diverticulosis of the colon. NG tube was placed 9/1 L of dark contents removed. Patient received IV fluid resuscitation. Laboratory workup revealed leukocytosis 21,000 hemoconcentration and severe metabolic acidosis with elevated anion gap. Lactic acid was negative. PH of 7.018 glucose of 408 and elevated anion gap and ketonuia. Diagnosed with DKA. He was started on insulin drip per DKA protocol. Patient was started on Protonix infusion history of chronic pancreatitis secondary to possible alcoholism in the past no alcohol use since past 7 years. DVT prophylaxis with Lovenox History of stroke/seizure/chronic pa
[2022-12-21] MEDS: INSULIN ASPART (*BKC) 100 UNITS/ML SUB-Q ×2 (12:15→17:34)
[2022-12-21] MEDS: cefTRIAXone 2 GM/NS 100 ML 2 GM/100 ML BAG IVPB (12:42)
[2022-12-21 13:10] VITALS: BMI 21.2
[2022-12-21] MEDS: PRIMIDONE 50 MG TABLET 100 MG PO (13:47)
[2022-12-21] MEDS: lisinopriL 2.5 MG TABLET PO (13:47)
[2022-12-21] MEDS: THIAMINE HCL 100 MG TABLET PO (13:47)
[2022-12-21] MEDS: FOLIC ACID 1 MG TABLET PO (13:47)
[2022-12-21] MEDS: CYANOCOBALAMIN 500 MCG TABLET PO (13:47)
[2022-12-21] MEDS: EMPAGLIFLOZIN 25 MG TABLET PO (13:47)
[2022-12-21] MEDS: PIOGLITAZONE HCL 15 MG TAB PO (13:48)
[2022-12-21 13:51] VITALS: BP 150/77; PULSE 85; RESP 16; TEMP 35.8; O2SAT 94
[2022-12-21 16:40] LABS: Glucose Point of Care 217 mg/dl (65-105)
[2022-12-21] MEDS: FERROUS SULFATE 325 MG TABLET DR PO (17:34)
[2022-12-21] MEDS: MAGNESIUM OXIDE 400 MG TABLET PO (17:35)
[2022-12-21] MEDS: metFORMIN HCL 500 MG TABLET 1000 MG PO (17:35)
[2022-12-21 20:43] VITALS: PULSE 94
[2022-12-21] MEDS: ATORVASTATIN 40 MG TABLET 80 MG PO (20:43)
[2022-12-21] MEDS: PANTOPRAZOLE 40 MG TABLET PO (20:43)
[2022-12-21] MEDS: MIRTAZAPINE 30 MG TABLET PO (20:43)
[2022-12-21] MEDS: DIVALPROEX SODIUM ER 500 MG TAB.24H 2000 MG PO (20:43)
[2022-12-21] MEDS: MELATONIN 3 MG TABLET PO (20:44)
[2022-12-21] MEDS: PRIMIDONE 50 MG TABLET PO (20:44)
[2022-12-21] MEDS: traZODone HCL 50 MG TABLET 200 MG PO (20:44)
[2022-12-21] MEDS: INSULIN GLARGINE (*BKC) 100 UNITS/ML 20 UNITS SUB-Q (20:48)
[2022-12-21] MEDS: BENZONATATE 100 MG CAPSULE PO (21:31)
[2022-12-21] MEDS: LATANOPROST 0.005% OP SOLN 2.5 ML BTL 1 DROP EACH EYE (21:32)
[2022-12-21] MEDS: FLUTICASONE/SALMETEROL 115-21 MCG INHALER 1 PUFF 2 PUFF INHALATION (21:59)
[2022-12-21 22:00] VITALS: BP 138/98; PULSE 111; RESP 16; TEMP 36.2; O2SAT 96
[2022-12-21 22:00] LABS: Glucose Point of Care 202 mg/dl (65-105)
[2022-12-22] VITALS (8 sets, daily range): BP systolic 113–168; BP diastolic 80–88; PULSE 96–112; RESP 12–18; TEMP 36.1–36.4; O2SAT 95–99; BMI 21.2
--- NOTE | 2022-12-22 06:01 | PC.NURSE ---
This nurse has reviewed and approves of Bhumika Putnam (license pending RN) charting and medication administrations.
--- NOTE | 2022-12-22 06:28 | WPDGIPROGNO ---
Progress Note: A&P Assessment and Plan (1) Nausea and vomiting: Code(s): R11.2 - Nausea with vomiting, unspecified Status: Acute Assessment and Plan: this has been going on for about 2 weeks. Some of the emesis was dark brown. The better is [facility] have been planning to perform endoscopy in the next couple weeks. (2) Epigastric abdominal pain: Code(s): R10.13 - Epigastric pain Status: Acute Assessment and Plan: Not having pain this morning but he has often on had pain for the past month or so. He does take NSAIDs every day and very likely has peptic ulcer disease. 12/22/2022 no longer having abdominal pain. (3) Chronic pancreatitis: Code(s): K86.1 - Other chronic pancreatitis Status: Acute Assessment and Plan: There is a past history of heavy alcohol use. A CT scan does show a pseudocyst. His lipase is in the normal range. (4) Coffee ground emesis: Code(s): K92.0 - Hematemesis Status: Acute Assessment and Plan: There is minimal material coming out the NG tube this morning, mostly dark and bilious. I will remove the NG tube. EGD will be performed later today to determine source of blood loss (5) DKA (diabetic ketoacidosis): Code(s): E11.10 - Type 2 diabetes mellitus with ketoacidosis without coma Status: Acute Assessment and Plan: he was very acidotic on admission with a elevated blood glucose. After insulin drip his blood sugars have become much more reasonable. He is on multiple oral meds at home including Jardiance, metformin, pioglitazone, but not on insulin far as I can tell. recent blood sugars are running in the 200s. Not quite yet where the ought to be (6) Ulcerative esophagitis: Code(s): K22.10 - Ulcer of esophagus without bleeding Status: Acute Assessment and Plan: Endoscopy revealed extensive and severe ulceration of the distal 2/3 of the esophagus. Biopsies are still pending. I will plan on seeing him for follow-up EGD in 8 weeks. we will keep him on PPI b.i.d. He could alternatively follow-up with the [facility]. Plan Remove NG tube EGD today. Subjective Date/time seen: 12/22/22 06:28 he is tolerating his diet. His blood sugars are Not yet quite ideal. Pathology report still pending but will show ulcerative esophagitis. The only question is whether not there may be infectious elements such as candidiasis. I think that is why the pathologist is holding off reading. Exam Const: General: cooperative and healthy appearing Orientation/consciousness: patient oriented x3 Other: NG tube is in place in left nostril. HENMT: Head: normal to inspection Ears: hearing grossly normal bilaterally Mouth: Yes Normal oral and palatal mucosa present Eyes: General: appearance normal, both eyes and all related structures Neck: Neck: normal visual inspection Chest: Chest palpation & inspection: normal inspection of the chest Resp: Effort & Inspection: normal respiratory effort Auscultation: clear to auscultation bilaterally Cardio: Rate: regular rate Rhythm: regular rhythm GI: Inspection: normal to inspection GI Palp: Yes No hepatosplenomegaly present Auscultation: normal bowel sounds Skin: General skin exam: normal color and no jaundice Neuro: General: patient oriented x3 Speech: normal speech Objective Data Vital Signs Vital Signs: Vital Signs - 24 hr 12/21/22 08:41 12/21/22 08:40 12/21/22 13:51 Temperature 35.8 C L Pulse Rate 96 85 Respiratory Rate 16 Blood Pressure 150/77 H Pulse Oximetry 94 Oxygen Delivery Room Air 12/21/22 15:34 12/21/22 20:43 12/21/22 22:00 Temperature 36.2 C L Pulse Rate 94 111 H Respiratory Rate 16 Blood Pressure 138/98 H Pulse Oximetry 96 Oxygen Delivery Room Air 12/21/22 22:00 Temperature Pulse Rate Respiratory Rate Blood Pressure Pulse Oximetry 96 Oxygen Del
[2022-12-22 06:35] LABS: Basophils Percent Auto 0.3 % (0.2-1.2); Eosinophils Absolute Auto 0.2 K/mm3 (0-0.3); Eosinophils Percent Auto 2.5 % (0-4.4); Hemoglobin 15.9 g/dL (14.0-18.0); Immature Granulocyte Absolute 0.04 K/mm3 (0.00-0.031); Immature Granulocyte Percent A 0.6 % (0-0.5); Lymphocytes Absolute Auto 0.87 K/mm3 (0.9-3.2); Lymphocytes Percent Auto 12.6 % (18.3-44.2); Mean Corpuscular HGB Conc 34.6 g/dl (32-36); Mean Corpuscular Hemoglobin 31.6 pg (26-34); Mean Corpuscular Volume 91.5 fl (80-100); Mean Platelet Volume 9.6 fl (7.4-10.4); Monocytes Absolute Auto 0.6 K/mm3 (0.1-0.6); Neutrophils Absolute Auto 5.3 K/mm3 (1.3-6.7); Platelet Count Result 158 k/mm3 (150-375); Red Blood Count 5.03 M/mm3 (4.6-6.20); Red Cell Distribution Width 13.5 % (11.5-14.5); White Blood Count 6.9 K/mm3 (4.5-10.0)
[2022-12-22 06:50] LABS: Alanine Aminotransferase 20 U/L (6-50); Albumin Level 3.6 g/dL (3.5-5.1); Alkaline Phosphatase 75 U/L (38-126); Anion Gap 9 mmol/L (8-16); Aspartate Amino Transferase 29 U/L (17-59); Bilirubin,Total 0.7 mg/dL (0.2-1.3); Blood Urea Nitrogen 12 mg/dL (9-20); Carbon Dioxide 30 mmol/L (22-30); Chloride 96 mmol/L (98-107); Estimated CRCL calculation 85 ml/min; Estimated Glomerular Filt Rate > 60; Glucose 174 mg/dL (65-110); Magnesium 2.2 mg/dL (1.6-2.3); Phosphorus 2.4 mg/dL (2.5-4.5); Potassium 3.5 mmol/L (3.4-5.0); Sodium 135 mmol/L (137-145)
[2022-12-22 08:15] LABS: Glucose Point of Care 137 mg/dl (65-105)
[2022-12-22] MEDS: MAGNESIUM OXIDE 400 MG TABLET PO ×2 (08:25→16:20)
[2022-12-22] MEDS: PANTOPRAZOLE 40 MG TABLET PO ×2 (08:25→20:55)
[2022-12-22] MEDS: PIOGLITAZONE HCL 15 MG TAB PO (08:25)
[2022-12-22] MEDS: metFORMIN HCL 500 MG TABLET 1000 MG PO ×2 (08:25→16:20)
[2022-12-22] MEDS: AZITHROMYCIN 250 MG TABLET 500 MG PO (08:25)
[2022-12-22] MEDS: PRIMIDONE 50 MG TABLET 100 MG PO (08:25)
[2022-12-22] MEDS: AMOXICILLIN/CLAVULANATE K 875-125 MG TAB 1 TABLET PO ×2 (08:25→20:54)
[2022-12-22] MEDS: FERROUS SULFATE 325 MG TABLET DR PO ×2 (08:26→16:20)
[2022-12-22] MEDS: levETIRAcetam 500 MG TABLET 1000 MG PO ×2 (08:26→20:53)
[2022-12-22] MEDS: lisinopriL 2.5 MG TABLET PO (08:26)
[2022-12-22] MEDS: PROPRANOLOL HCL 20 MG TABLET PO ×2 (08:26→20:54)
[2022-12-22] MEDS: CYANOCOBALAMIN 500 MCG TABLET PO (08:27)
[2022-12-22] MEDS: BENZONATATE 100 MG CAPSULE PO ×3 (08:27→16:20)
[2022-12-22] MEDS: THIAMINE HCL 100 MG TABLET PO (08:27)
[2022-12-22] MEDS: EMPAGLIFLOZIN 25 MG TABLET PO (08:27)
[2022-12-22] MEDS: FOLIC ACID 1 MG TABLET PO (08:27)
[2022-12-22] MEDS: FLUTICASONE/SALMETEROL 115-21 MCG INHALER 1 PUFF 2 PUFF INHALATION ×2 (08:53→20:35)
[2022-12-22] MEDS: UMECLIDINIUM BROMIDE 62.5 MCG ELLIPTA 1 PUFF INHALATION (08:53)
[2022-12-22 11:53] LABS: Glucose Point of Care 202 mg/dl (65-105)
[2022-12-22] MEDS: INSULIN ASPART (*BKC) 100 UNITS/ML SUB-Q (12:01)
[2022-12-22 13:51] LABS: Glucose Point of Care 282 mg/dl (65-105)
[2022-12-22 16:49] LABS: Glucose Point of Care 197 mg/dl (65-105)
[2022-12-22] MEDS: ACETAMINOPHEN ELIXIR 325 MG/10.15 ML UDC 650 MG PO (17:43)
[2022-12-22] MEDS: traZODone HCL 50 MG TABLET 200 MG PO (20:53)
[2022-12-22] MEDS: DIVALPROEX SODIUM ER 500 MG TAB.24H 2000 MG PO (20:53)
[2022-12-22] MEDS: MIRTAZAPINE 30 MG TABLET PO (20:54)
[2022-12-22] MEDS: ATORVASTATIN 40 MG TABLET 80 MG PO (20:54)
[2022-12-22] MEDS: MELATONIN 3 MG TABLET PO (20:55)
[2022-12-22] MEDS: PRIMIDONE 50 MG TABLET PO (20:55)
[2022-12-22] MEDS: LATANOPROST 0.005% OP SOLN 2.5 ML BTL 1 DROP EACH EYE (20:56)
[2022-12-22] MEDS: INSULIN GLARGINE (*BKC) 100 UNITS/ML 20 UNITS SUB-Q (20:56)
[2022-12-22 21:06] LABS: Glucose Point of Care 275 mg/dl (65-105)
--- NOTE | 2022-12-22 21:06 | PM.IMPN ---
Progress Note: A&P Assessment and Plan (1) Ulcerative esophagitis: Code(s): K22.10 - Ulcer of esophagus without bleeding Status: Acute (2) DKA (diabetic ketoacidosis): Code(s): E11.10 - Type 2 diabetes mellitus with ketoacidosis without coma Status: Acute Plan 57M w/ PMH COPD, CVA, chronic pancreatitis, DKA, HTN, marijuana and tobacco abuse, IDDM presented with epigastric pain. cont protonix BID for ulcer, cont pain control. heavily counseled on avoiding NSAIDS, caffeine, alcohol and tobacco. pt agrees cont accuchecks. insulin sliding scale plan for discharge in AM pending social issues, if tolerating diet and sugars are controlled full code Subjective Date/time seen: 12/22/22 21:06 Interval history: complains of abdomdinal pain, tolerating diet. he admits to heavy ibuprofen and aleve use. drinks caffeine but quit alcohol years ago. Review of Systems Cardiovascular: Cardiovascular: Denies chest pain and Denies dyspnea Respiratory: Respiratory: Denies cough and Denies dyspnea Gastrointestinal: Gastrointestinal: Reports abdominal pain and Denies vomiting Exam Const: General: no acute distress, alert and Physically active Resp: Effort & Inspection: normal respiratory effort Auscultation: clear to auscultation bilaterally Cardio: Rate: regular rate Rhythm: regular rhythm Heart sounds: S1 normal heart sound present and S2 normal heart sound present GI: Inspection: non-distended GI Palp: No abdominal tenderness Auscultation: normal bowel sounds Extrem: Right upper extremity: no edema Objective Data Vital Signs Vital Signs: Vital Signs - 24 hr 12/21/22 22:00 12/21/22 22:00 12/22/22 06:00 Temperature 97.1 F L 97.6 F Pulse Rate 111 H 108 H Respiratory Rate 16 14 Blood Pressure 138/98 H 113/82 Pulse Oximetry 96 96 95 Oxygen Delivery Room Air 12/22/22 08:26 12/22/22 08:56 12/22/22 12:22 Temperature Pulse Rate 104 H Respiratory Rate Blood Pressure Pulse Oximetry 96 Oxygen Delivery Room Air Room Air 12/22/22 14:00 12/22/22 20:37 12/22/22 20:54 Temperature 97.0 F L Pulse Rate 99 96 96 Respiratory Rate 16 18 Blood Pressure 149/80 H Pulse Oximetry 96 Oxygen Delivery Intake/Output Intake/Output: Intake & Output 12/19/22 12/20/22 12/21/22 12/22/22 23:59 23:59 23:59 23:59 Intake Total 3833 2500 2412 2394 Output Total 2700 3650 1300 2765 Balance 1133 -1150 1112 -371 Meds/Results Medications: Active Medications Generic Name Dose Route Start Last Admin Trade Name Freq PRN Reason Stop Dose Admin Acetaminophen 650 mg 12/19/22 10:27 12/22/22 17:43 Acetaminophen Elixir 325 Mg/10.15 Ml Udc PO 650 mg Q6H PRN Administration Mild Pain (1-3) or Fever Albuterol 2 puff 12/21/22 11:59 Albuterol Sulfate (*Sp) Aerosol 1 Puff INHALATION QIDRT PRN Shortness Of Breath Amoxicillin/Clavulanate Potassium 1 tablet 12/22/22 09:00 12/22/22 20:54 Amoxicillin/Clavulanate K 875-125 Mg Tab PO 12/25/22 21:01 1 tablet Q12HR ANGELA Administration Atorvastatin Calcium 80 mg 12/21/22 21:00 12/22/22 20:54 Atorvastatin 40 Mg Tablet PO 80 mg HS ANGELA Administration Azithromycin 500 mg 12/22/22 09:00 12/22/22 08:25 Azithromycin 250 Mg Tablet PO 12/23/22 09:01 500 mg DAILY ANGELA Administration Benzonatate 100 mg 12/21/22 21:20 12/22/22 16:20 Benzonatate 100 Mg Capsule PO 100 mg TID ANGELA Administration Cyanocobalamin 500 mcg 12/21/22 12:30 12/22/22 08:27 Cyanocobalamin 500 Mcg Tablet PO 500 mcg DAILY ANGELA Administration Cyclobenzaprine HCl 10 mg 12/21/22 11:59 Cyclobenzaprine Hcl 10 Mg Tablet PO TID PRN Muscle Spasm Dextrose 12.5 gm 12/18/22 13:14 Dextrose 50% 25 Gm/50 Ml Syringe IV PUSH PRN PRN Hypoglycemia Protocol Divalproex Sodium 2,000 mg 12/18/22 23:35 12/22/22 20:53 Divalproex Sodium Er 500 Mg Tab.24h PO 2,000 mg
[2022-12-23] VITALS (7 sets, daily range): BP systolic 126–178; BP diastolic 80–82; PULSE 84–120; RESP 14–20; TEMP 36.2–37.2; O2SAT 92–97
--- NOTE | 2022-12-23 02:30 | PC.NURSE ---
This nurse reviewed Bhumika Putnam's (license pending) charting and agree with all entries for 12-22-22 and 12-23-22.
[2022-12-23] MEDS: hydrALAZINE HCL 20 MG/ML VIAL 10 MG IV PUSH (05:36)
[2022-12-23] MEDS: hydrOXYzine HCL 25 MG TABLET PO (05:39)
[2022-12-23] MEDS: MORPHINE SULFATE (*CRX) 2 MG/ML INJ 1 MG IV PUSH ×4 (05:44→21:49)
[2022-12-23] MEDS: BENZONATATE 100 MG CAPSULE PO ×3 (06:53→16:39)
[2022-12-23 06:55] LABS: Hematocrit 44.5 % (42.0-52.0); Mean Corpuscular HGB Conc 33.7 g/dl (32-36); Mean Corpuscular Hemoglobin 31.5 pg (26-34); Mean Corpuscular Volume 93.5 fl (80-100); Mean Platelet Volume 9.4 fl (7.4-10.4); Platelet Count Result 183 k/mm3 (150-375); Red Blood Count 4.76 M/mm3 (4.6-6.20); Red Cell Distribution Width 13.7 % (11.5-14.5); White Blood Count 7.3 K/mm3 (4.5-10.0)
[2022-12-23 07:08] LABS: Anion Gap 8 mmol/L (8-16); Blood Urea Nitrogen 17 mg/dL (9-20); Calcium 9.6 mg/dL (8.4-10.2); Carbon Dioxide 28 mmol/L (22-30); Chloride 93 mmol/L (98-107); Estimated CRCL calculation 85 ml/min; Estimated Glomerular Filt Rate > 60; Glucose 352 mg/dL (65-110); Potassium 4.9 mmol/L (3.4-5.0); Sodium 129 mmol/L (137-145)
[2022-12-23 07:33] LABS: Glucose Point of Care 291 mg/dl (65-105)
[2022-12-23] MEDS: lisinopriL 2.5 MG TABLET PO (07:59)
[2022-12-23] MEDS: PROPRANOLOL HCL 20 MG TABLET PO ×2 (07:59→20:56)
[2022-12-23] MEDS: PANTOPRAZOLE 40 MG TABLET PO ×2 (08:00→20:57)
[2022-12-23] MEDS: AZITHROMYCIN 250 MG TABLET 500 MG PO (08:00)
[2022-12-23] MEDS: FOLIC ACID 1 MG TABLET PO (08:00)
[2022-12-23] MEDS: FERROUS SULFATE 325 MG TABLET DR PO ×2 (08:00→16:39)
[2022-12-23] MEDS: PIOGLITAZONE HCL 15 MG TAB PO (08:01)
[2022-12-23] MEDS: metFORMIN HCL 500 MG TABLET 1000 MG PO ×2 (08:01→16:39)
[2022-12-23] MEDS: EMPAGLIFLOZIN 25 MG TABLET PO (08:01)
[2022-12-23] MEDS: CYANOCOBALAMIN 500 MCG TABLET PO (08:01)
[2022-12-23] MEDS: AMOXICILLIN/CLAVULANATE K 875-125 MG TAB 1 TABLET PO ×2 (08:02→20:57)
[2022-12-23] MEDS: levETIRAcetam 500 MG TABLET 1000 MG PO ×2 (08:02→20:57)
[2022-12-23] MEDS: THIAMINE HCL 100 MG TABLET PO (08:02)
[2022-12-23] MEDS: MAGNESIUM OXIDE 400 MG TABLET PO ×2 (08:02→16:38)
[2022-12-23] MEDS: PRIMIDONE 50 MG TABLET 100 MG PO (08:03)
[2022-12-23] MEDS: INSULIN ASPART (*BKC) 100 UNITS/ML SUB-Q ×2 (08:07→10:30)
[2022-12-23] MEDS: UMECLIDINIUM BROMIDE 62.5 MCG ELLIPTA 1 PUFF INHALATION (08:38)
[2022-12-23 12:01] LABS: Glucose Point of Care 125 mg/dl (65-105)
[2022-12-23 12:39] LABS: Anion Gap 7 mmol/L (8-16); Blood Urea Nitrogen 17 mg/dL (9-20); Calcium 10.1 mg/dL (8.4-10.2); Carbon Dioxide 29 mmol/L (22-30); Chloride 93 mmol/L (98-107); Estimated CRCL calculation 122 ml/min; Estimated Glomerular Filt Rate > 60; Glucose 117 mg/dL (65-110); Potassium 3.9 mmol/L (3.4-5.0); Sodium 129 mmol/L (137-145)
--- NOTE | 2022-12-23 14:12 | PM.IMPN ---
Progress Note: A&P Assessment and Plan (1) Ulcerative esophagitis: Code(s): K22.10 - Ulcer of esophagus without bleeding Status: Acute (2) Hyponatremia: Code(s): E87.1 - Hypo-osmolality and hyponatremia Status: Acute Plan 57M w/ PMH COPD, CVA, chronic pancreatitis, DKA, HTN, marijuana and tobacco abuse, IDDM presented with epigastric pain. cont protonix BID for ulcer, cont pain control. heavily counseled on avoiding NSAIDS, caffeine, alcohol and tobacco. pt agrees cont accuchecks. insulin sliding scale will hold another day for normal saline infusion and recheck of low sodium. full code Subjective Date/time seen: 12/23/22 14:12 Interval history: NAOE. pt has no complaints for me. Review of Systems Cardiovascular: Cardiovascular: Denies chest pain and Denies dyspnea Respiratory: Respiratory: Denies cough and Denies dyspnea Gastrointestinal: Gastrointestinal: Denies abdominal pain and Denies vomiting Exam Const: General: no acute distress, alert and Physically active Resp: Effort & Inspection: normal respiratory effort Auscultation: clear to auscultation bilaterally Cardio: Rate: regular rate Rhythm: regular rhythm Heart sounds: S1 normal heart sound present and S2 normal heart sound present GI: Inspection: non-distended GI Palp: No abdominal tenderness Auscultation: normal bowel sounds Extrem: Right upper extremity: no edema Objective Data Vital Signs Vital Signs: Vital Signs - 24 hr 12/22/22 20:37 12/22/22 20:54 12/22/22 21:18 Temperature 97.1 F L Pulse Rate 96 96 112 H Respiratory Rate 18 12 Blood Pressure 168/88 H Pulse Oximetry 99 Oxygen Delivery 12/22/22 21:00 12/23/22 06:00 12/23/22 07:59 Temperature 97.4 F L Pulse Rate 88 120 H Respiratory Rate 14 Blood Pressure 178/80 H Pulse Oximetry 99 97 Oxygen Delivery Room Air 12/23/22 08:39 12/23/22 08:40 Temperature Pulse Rate 102 H Respiratory Rate 20 Blood Pressure Pulse Oximetry 92 Oxygen Delivery Room Air Intake/Output Intake/Output: Intake & Output 12/20/22 12/21/22 12/22/22 12/23/22 23:59 23:59 23:59 23:59 Intake Total 2500 2412 2644 1238 Output Total 3650 1300 2765 600 Balance -1150 1112 -121 638 Meds/Results Medications: Active Medications Generic Name Dose Route Start Last Admin Trade Name Freq PRN Reason Stop Dose Admin Acetaminophen 650 mg 12/19/22 10:27 12/22/22 17:43 Acetaminophen Elixir 325 Mg/10.15 Ml Udc PO 650 mg Q6H PRN Administration Mild Pain (1-3) or Fever Albuterol 2 puff 12/21/22 11:59 Albuterol Sulfate (*Sp) Aerosol 1 Puff INHALATION QIDRT PRN Shortness Of Breath Amoxicillin/Clavulanate Potassium 1 tablet 12/22/22 09:00 12/23/22 08:02 Amoxicillin/Clavulanate K 875-125 Mg Tab PO 12/25/22 21:01 1 tablet Q12HR ANGELA Administration Atorvastatin Calcium 80 mg 12/21/22 21:00 12/22/22 20:54 Atorvastatin 40 Mg Tablet PO 80 mg HS ANGELA Administration Benzonatate 100 mg 12/21/22 21:20 12/23/22 12:00 Benzonatate 100 Mg Capsule PO 100 mg TID ANGELA Administration Cyanocobalamin 500 mcg 12/21/22 12:30 12/23/22 08:01 Cyanocobalamin 500 Mcg Tablet PO 500 mcg DAILY ANGELA Administration Cyclobenzaprine HCl 10 mg 12/21/22 11:59 Cyclobenzaprine Hcl 10 Mg Tablet PO TID PRN Muscle Spasm Dextrose 12.5 gm 12/18/22 13:14 Dextrose 50% 25 Gm/50 Ml Syringe IV PUSH PRN PRN Hypoglycemia Protocol Divalproex Sodium 2,000 mg 12/18/22 23:35 12/22/22 20:53 Divalproex Sodium Er 500 Mg Tab.24h PO 2,000 mg HS ANGELA Administration Empagliflozin 25 mg 12/21/22 12:30 12/23/22 08:01 Empagliflozin 25 Mg Tablet PO 25 mg DAILY ANGELA Administration Enoxaparin Sodium 40 mg 12/19/22 09:00 Enoxaparin 40 Mg/0.4 Ml Syringe SUB-Q DAILY ANGELA Ferrous Sulfate 325 mg 12/21/22 17:00 12/23/22 08:00 Ferrous Sulfate [address] PO
[2022-12-23] MEDS: SODIUM CHLORIDE 0.9% IV 1,000 ML 100 ML IV CONT (14:23)
[2022-12-23] MEDS: ONDANSETRON INJ 4 MG/2 ML VIAL IV PUSH (15:01)
[2022-12-23] MEDS: SUCRALFATE 1 GM TABLET PO ×2 (16:38→20:57)
[2022-12-23 17:15] LABS: Glucose Point of Care 170 mg/dl (65-105)
[2022-12-23] MEDS: FLUTICASONE/SALMETEROL 115-21 MCG INHALER 1 PUFF 2 PUFF INHALATION (20:17)
[2022-12-23 20:33] LABS: Glucose Point of Care 253 mg/dl (65-105)
[2022-12-23] MEDS: DIVALPROEX SODIUM ER 500 MG TAB.24H 2000 MG PO (20:56)
[2022-12-23] MEDS: MIRTAZAPINE 30 MG TABLET PO (20:57)
[2022-12-23] MEDS: traZODone HCL 50 MG TABLET 200 MG PO (20:57)
[2022-12-23] MEDS: ATORVASTATIN 40 MG TABLET 80 MG PO (20:57)
[2022-12-23] MEDS: MELATONIN 3 MG TABLET PO (20:57)
[2022-12-23] MEDS: LATANOPROST 0.005% OP SOLN 2.5 ML BTL 1 DROP EACH EYE (20:58)
[2022-12-23] MEDS: INSULIN GLARGINE (*BKC) 100 UNITS/ML 20 UNITS SUB-Q (20:58)
[2022-12-23] MEDS: PRIMIDONE 50 MG TABLET PO (20:58)
[2022-12-23] MEDS: CYCLOBENZAPRINE HCL 10 MG TABLET PO (21:07)
[2022-12-24] MEDS: MORPHINE SULFATE (*CRX) 2 MG/ML INJ 1 MG IV PUSH ×2 (04:04→09:03)
[2022-12-24] MEDS: SUCRALFATE 1 GM TABLET PO ×3 (04:04→17:25)
[2022-12-24 06:00] VITALS: BP 137/78; PULSE 103; RESP 16; TEMP 36.4; O2SAT 93
[2022-12-24 06:51] LABS: Hematocrit 49.1 % (42.0-52.0); Hemoglobin 16.6 g/dL (14.0-18.0); Mean Corpuscular HGB Conc 33.8 g/dl (32-36); Mean Corpuscular Hemoglobin 32.2 pg (26-34); Mean Corpuscular Volume 95.2 fl (80-100); Mean Platelet Volume 9.4 fl (7.4-10.4); Platelet Count Result 271 k/mm3 (150-375); Red Blood Count 5.16 M/mm3 (4.6-6.20); Red Cell Distribution Width 13.6 % (11.5-14.5); White Blood Count 7.2 K/mm3 (4.5-10.0)
[2022-12-24 07:06] LABS: Anion Gap 10 mmol/L (8-16); Blood Urea Nitrogen 17 mg/dL (9-20); Calcium 10.1 mg/dL (8.4-10.2); Carbon Dioxide 30 mmol/L (22-30); Chloride 90 mmol/L (98-107); Estimated CRCL calculation 81 ml/min; Estimated Glomerular Filt Rate > 60; Glucose 312 mg/dL (65-110); Potassium 4.6 mmol/L (3.4-5.0); Sodium 130 mmol/L (137-145)
[2022-12-24] MEDS: FLUTICASONE/SALMETEROL 115-21 MCG INHALER 1 PUFF 2 PUFF INHALATION (07:24)
[2022-12-24] MEDS: UMECLIDINIUM BROMIDE 62.5 MCG ELLIPTA 1 PUFF INHALATION (07:25)
--- NOTE | 2022-12-24 08:11 | PM.DS ---
DS: Admitting Diagnosis Discharge Date 12/24/22 Admitting Diagnosis DKA DS: Discharge Diagnosis Discharge Diagnosis (1) Hyponatremia: Code(s): E87.1 - Hypo-osmolality and hyponatremia Status: Acute (2) Ulcerative esophagitis: Code(s): K22.10 - Ulcer of esophagus without bleeding Status: Acute (3) DKA (diabetic ketoacidosis): Code(s): E11.10 - Type 2 diabetes mellitus with ketoacidosis without coma Status: Acute (4) Tobacco abuse: Code(s): Z72.0 - Tobacco use Status: Acute DS: Summary Hospital Course Hospital Course: 57M w/ PMH COPD, CVA, chronic pancreatitis, DKA, HTN, marijuana and tobacco abuse, PUD NIDDM presented with epigastric pain. He was treated for the following: NIDDM uncontrolled w/ resulting DKA - treated with DKA protocol. improved. added pioglitazone to his regimen. counseled and educated. to follow up with [facility] - treated with full course of ceftriaxone and azithromycin Mild hyponatremia - improved. repeat BMP in 3 days. follow up with [facility] coffee ground emesis - EGD performed on 12/20 demonstrated reflux esophagitis. continue protonix BID for 8 weeks then f/u with GI. he was counseled on avoiding NSAIDS, which he was taking everyday for arthritis. More than 30 minutes spent on discharge planning and documentation. Time Spent with Patient Time attestation: Total time spent providing and/or coordinating discharge services: Exam Const: General: cooperative and no acute distress Resp: Effort & Inspection: normal respiratory effort Auscultation: clear to auscultation bilaterally Cardio: Rate: regular rate Rhythm: regular rhythm Heart sounds: S1 normal heart sound present and S2 normal heart sound present GI: GI Palp: No abdominal tenderness Auscultation: normal bowel sounds DS: Data Data Completed and Pending Completed studies during hospitalization: Pending at discharge 12/20/22 14:16 Surgical [PTH] Routine Labs on day of discharge: Labs from last 24 hours 12/24/22 12/23/22 12/23/22 06:11 20:27 16:56 WBC 7.2 RBC 5.16 Hgb 16.6 Hct 49.1 MCV 95.2 MCH 32.2 MCHC 33.8 RDW 13.6 Plt Count 271 MPV 9.4 Sodium 130 L Potassium 4.6 Chloride 90 L Carbon Dioxide 30 Anion Gap 10 BUN 17 Creatinine 0.60 L Estim Creat Clear Calc 81 Estimated GFR > 60 Glucose 312 H POC Capillary Glucose 253 H 170 H Calcium 10.1 12/23/22 12/23/22 12:14 11:58 WBC RBC Hgb Hct MCV MCH MCHC RDW Plt Count MPV Sodium 129 L Potassium 3.9 Chloride 93 L Carbon Dioxide 29 Anion Gap 7 L BUN 17 Creatinine 0.40 L Estim Creat Clear Calc 122 Estimated GFR > 60 Glucose 117 H POC Capillary Glucose 125 H Calcium 10.1 Discharge Plan Discharge Attending physician on discharge: Rebeca Adams Consulting providers: Maxine Duarte; Tad Dang Discharging Clinician: Rebeca Adams Patient Disposition: Home, Self-Care Activity: may shower Diet: heart healthy and diabetic Patient Instructions: How to Stop Smoking (DC) Stand Alone Forms: General Discharge Information Follow-up/Referrals: Tad Dang MD [Physician] - Keep Reg. Scheduled Appt. [facility] [Primary Care Provider] - 2 Weeks Discharge Medications: New pantoprazole [Protonix] 40 mg tablet,delayed release (DR/EC) 40 mg PO BID 56 Days Qty: 112 0RF nicotine 21 mg/24 hr patch 24 hour 1 patch transdermal DAILY PRN (Reason: smoking cessation) Qty: 28 5RF pioglitazone 15 mg tablet 15 mg PO DAILY Qty: 90 1RF sucralfate 1 gram tablet 1 g PO QID 30 Days Qty: 120 0RF Continued cyclobenzaprine 10 mg Tablet 10 mg PO TID PRN (Reason: Muscle Spasm) fluticasone propion-salmeterol 250-50 mcg/dose Blister With Device 250 inh INHALATION BID Rx Instructions: 1 puff atorvastatin 80 mg T
[2022-12-24 08:13] LABS: Glucose Point of Care 230 mg/dl (65-105)
[2022-12-24] MEDS: FERROUS SULFATE 325 MG TABLET DR PO ×2 (08:51→17:25)
[2022-12-24] MEDS: metFORMIN HCL 500 MG TABLET 1000 MG PO ×2 (08:52→17:25)
[2022-12-24] MEDS: BENZONATATE 100 MG CAPSULE PO ×3 (08:52→17:25)
[2022-12-24] MEDS: AMOXICILLIN/CLAVULANATE K 875-125 MG TAB 1 TABLET PO (08:52)
[2022-12-24] MEDS: lisinopriL 2.5 MG TABLET PO (08:53)
[2022-12-24] MEDS: EMPAGLIFLOZIN 25 MG TABLET PO (08:53)
[2022-12-24] MEDS: CYANOCOBALAMIN 500 MCG TABLET PO (08:53)
[2022-12-24] MEDS: levETIRAcetam 500 MG TABLET 1000 MG PO (08:53)
[2022-12-24] MEDS: FOLIC ACID 1 MG TABLET PO (08:53)
[2022-12-24] MEDS: PRIMIDONE 50 MG TABLET 100 MG PO (08:54)
[2022-12-24] MEDS: MAGNESIUM OXIDE 400 MG TABLET PO ×2 (08:54→17:25)
[2022-12-24] MEDS: PANTOPRAZOLE 40 MG TABLET PO (08:54)
[2022-12-24] MEDS: PIOGLITAZONE HCL 15 MG TAB PO (08:54)
[2022-12-24 08:55] VITALS: PULSE 115
[2022-12-24] MEDS: PROPRANOLOL HCL 20 MG TABLET PO (08:55)
[2022-12-24] MEDS: THIAMINE HCL 100 MG TABLET PO (08:56)
[2022-12-24] MEDS: INSULIN ASPART (*BKC) 100 UNITS/ML SUB-Q ×2 (08:57→12:23)
[2022-12-24 09:05] VITALS: O2SAT 97
[2022-12-24 12:00] LABS: Glucose Point of Care 275 mg/dl (65-105)
[2022-12-24] MEDS: SENNA/DOCUSATE SODIUM TABLET 1 TAB PO (12:22)
[2022-12-24 14:00] VITALS: BP 122/66; PULSE 103; RESP 16; TEMP 36.4; O2SAT 96
[2022-12-24 17:22] LABS: Glucose Point of Care 175 mg/dl (65-105)
--- NOTE | 2022-12-24 19:25 | PC.NURSE ---
Patient called to state that he is coughing up blue stuff . patient denies shortness of breath or chest pain. patient states that he smoked a cigarette and used his inhaler after he left here, but did not inhale anything else. patient advised to come to er if he has any worrisome symptoms or continues that have blue sputum.
== END 2022-12-24 18:02 | disposition home or self-care (01) | DRG 871 ==
LOC: ANHED 10:43 → ANHICU 12:03 → ANH3MEDSUR 12-20 17:08
PROVIDERS: Emergency Medicine; Internal Medicine; Internal Medicine Gastroenterology; Physician Assistant; Admitting Provider Internal Medicine; Emergency Provider Emergency Medicine; Visit Provider General Practice
PROC: 0DJ08ZZ Inspection of Upper Intestinal Tract, Via Natural or Artificial Opening Endoscopic (ICD-10-PCS; CPT 43235; principal; 2022-12-20 14:15)
DX: A41.9 Sepsis, unspecified organism (principal); E11.10 Type 2 diabetes mellitus with ketoacidosis without coma; K21.01 Gastro-esophageal reflux disease with esophagitis, with bleeding; J18.9 Pneumonia, unspecified organism; K22.10 Ulcer of esophagus without bleeding; K86.0 Alcohol-induced chronic pancreatitis; E87.1 Hypo-osmolality and hyponatremia; Z20.822 Contact with and (suspected) exposure to COVID-19; F17.210 Nicotine dependence, cigarettes, uncomplicated; F12.90 Cannabis use, unspecified, uncomplicated; J44.9 Chronic obstructive pulmonary disease, unspecified; E86.0 Dehydration; D72.829 Elevated white blood cell count, unspecified; Z86.73 Personal history of transient ischemic attack (TIA), and cerebral infarction without residual deficits; M19.90 Unspecified osteoarthritis, unspecified site
CPT/HCPCS: 36415; 36600; 71045; 74019; 74177; 80048; 80053; 80164; 81001; 82271; 82375; 82805; 82948; 83036; 83050; 83605; 83690; 83735; 83986; 84100; 84443; 85025; 85027; 87070; 87081; 87147; 87181; 87186; 87205; 87636; 88305; 88342; 94640; 96361; 96365; 96375; 97116; 97161; 97165; 97530; 97535; 99285; A9270; C9113; J0360; J0456; J0696; J1815; J2270; J2405; J2704; J2765; J3480; J7030; J7040; J7120; Q9967

== ENCOUNTER 2022-12-27 18:27 | Emergency (ER) | payer OTHER, SELFPAY ==
[2022-12-27] VITALS (11 sets, daily range): BP systolic 90–107; BP diastolic 59–92; PULSE 109–120; RESP 17–24; TEMP 36.4; O2SAT 89–97
--- NOTE | ~2022-12-27 | CT_ITS ---
EXAMINATION: CTA chest PE protocol DATE: 12/27/2022 22:28 INDICATION: Shortness of breath. Tachycardia. TECHNIQUE: Computed tomography angiography (CTA) of the chest was performed with 100 mL Omnipaque-350 intravenous contrast timed to evaluate the pulmonary arteries. Coronal maximum intensity projection 3D-reconstructions were created by the technologist. Automated exposure control and iterative reconst ruction technique were employed. The dose-length product was 220.38 mGy-cm. COMPARISON: CT abdomen and pelvis 12/18/2022 FINDINGS: There is mild emphysema. There is smooth septal thickening in the lungs. There are groundgl ass opacities in peripheral left lower lobe. No pleural effusion. The heart size is normal. No perica rdial effusion. There is no pulmonary embolus. There is a 4.7 cm cyst with peripheral calcifications in the tail of the pancreas. There is mild thoracic spondylosis. IMPRESSION: 1. No pulmonary embolus. 2. Diffuse lung disease, likely mild pulmonary edema. 3. Mild emphysema. 4. 4.7 cm cystic lesion with peripheral calcifications in the pancreas. The differential diagnosis in cludes pseudocyst, intraductal papillary mucinous neoplasm (IPMN), mucinous cystic neoplasm (MCN), se estelle cystadenoma, and neuroendocrine tumor. Surgical referral is recommended. Reviewed, dictated and finalized at location E. IMPRESSION: 1. No pulmonary embolus. 2. Diffuse lung disease, likely mild pulmonary edema. 3. Mild emphysema. 4. 4.7 cm cystic lesion with peripheral calcifications in the pancreas. The dif ferential diagnosis includes pseudocyst, intraductal papillary mucinous neoplas m (IPMN), mucinous cystic neoplasm (MCN), serous cystadenoma, and neuroendocrin e tumor. Surgical referral is recommended.
[2022-12-27 18:52] LABS: Glucose Point of Care 260 mg/dl (65-105)
--- NOTE | 2022-12-27 19:13 | PC.NURSE ---
Assumed care of pt from SANJIV Charles at this time.
--- NOTE | 2022-12-27 19:43 | ED.GENADULT ---
HPI - General Adult General Chief complaint: Recheck/Abnormal Lab/Rx Stated complaint: high blood glucose, blurry vision Time Seen by Provider: 12/27/22 19:08 History of Present Illness HPI narrative: Patient presents to the emergency department from home via EMS. He is concerned about his blood sugar. Patient was admitted to the hospital for stomach ulcers for a week. He has been home for the past 2 days. He has a baseline tremor that he has had since he was a young man . He states that his blood sugar monitor is not working currently. He was concerned that his blood sugar was elevated and called EMS. Patient denies all other complaints including headache chest pain shortness of breath and Increased abdominal pain. He has some mild residual epigastric pain since being admitted to the hospital but nothing concerning to the patient. He denies fevers and chills. EMS blood sugar was 325. Per triage note he also had blurry vision. Patient is pleasant and in no acute distress. Exam is grossly benign Related Data Home Medications Medication Instructions Recorded Confirmed Depakote ER 2,000 mg PO HS 12/18/22 12/18/22 albuterol 90 mcg/actuation aerosol 90 mcg inhalation QID PRN 12/18/22 12/18/22 inhaler Shortness Of Breath amlodipine 5 mg tablet 5 mg PO DAILY 12/18/22 12/18/22 atorvastatin 80 mg tablet 80 mg PO HS 12/18/22 12/18/22 cyclobenzaprine 10 mg tablet 10 mg PO TID PRN Muscle Spasm 12/18/22 12/18/22 empagliflozin 25 mg tablet 25 mg PO DAILY 12/18/22 12/18/22 ferrous sulfate 325 mg (65 mg 325 mg PO BID 12/18/22 12/18/22 iron) tablet fluticasone 250 mcg-salmeterol 50 250 inh inhalation BID 12/18/22 12/18/22 mcg/dose blistr powdr for inhalation folic acid 1 mg tablet 1 mg PO DAILY 12/18/22 12/18/22 hydroxyzine HCl 25 mg tablet 25 mg PO BID PRN Anxiety 12/18/22 12/18/22 latanoprost 0.005 % eye drops 0.005 drp EACH EYE HS 12/18/22 12/18/22 levetiracetam 1,000 mg tablet 1,000 mg PO BID 12/18/22 12/18/22 (Keppra) lisinopril 2.5 mg tablet 2.5 mg PO DAILY 12/18/22 12/18/22 magnesium oxide 400 mg PO BID 12/18/22 12/18/22 mecobalamin (vitamin B12) 500 mcg 500 mcg PO DAILY 12/18/22 12/18/22 chewable tablet melatonin 3 mg tablet 3 mg PO HS 12/18/22 12/18/22 metformin 1,000 mg tablet 1,000 mg PO BID 12/18/22 12/18/22 mirtazapine 30 mg tablet 30 mg PO HS 12/18/22 12/18/22 pioglitazone 45 mg tablet 50 mg PO DAILY 12/18/22 12/18/22 primidone 50 mg tablet See Rx Instructions .Route .COMPLEX 12/18/22 12/18/22 propranolol 20 mg tablet 20 mg PO Q12H 12/18/22 12/18/22 thiamine HCl (vitamin B1) 100 mg 100 mg PO DAILY 12/18/22 12/18/22 tablet tiotropium bromide 1.25 2 puff inhalation DAILY 12/18/22 12/18/22 mcg/actuation mist for inhalation (Spiriva Respimat) trazodone 100 mg tablet 200 mg PO HS 12/18/22 12/18/22 Allergies Allergy/AdvReac Type Severity Reaction Status Date / Time gabapentin Allergy Unknown Verified 12/27/22 18:37 Review of Systems Review of Systems: Review of systems negative except for what is documented in the [facility] Past Medical History Medical History Cerebrovascular accident x2 Chronic pancreatitis COPD (chronic obstructive pulmonary disease) DKA (diabetic ketoacidosis) Hypertension Marijuana use Tobacco abuse Type 2 diabetes mellitus Surgical History Surgical History No history of previous surgery Family History Family History Other Diabetes mellitus Social History Social History Social History: Surrogate medical decision maker: Nitin Nixon, son. Code status: Full code. Smoking packs per day: 3 Smoking cigarettes per day: 60.0 Years smoked: 45 Smoking pack-years: 135.00 Smoking status: Current every day smoker Alcohol intake: never
[2022-12-27] MEDS: SODIUM CHLORIDE 0.9% IV 1,000 ML 999 ML IV CONT ×2 (19:58→21:49)
[2022-12-27 20:30] LABS: Basophils Absolute Auto 0.1 K/mm3 (0.0-0.1); Basophils Percent Auto 0.8 % (0.2-1.2); Eosinophils Absolute Auto 0.2 K/mm3 (0-0.3); Eosinophils Percent Auto 2.2 % (0-4.4); Hematocrit 39.3 % (42.0-52.0); Hemoglobin 13.1 g/dL (14.0-18.0); Immature Granulocyte Absolute 0.28 K/mm3 (0.00-0.031); Immature Granulocyte Percent A 3.8 % (0-0.5); Lymphocytes Absolute Auto 1.51 K/mm3 (0.9-3.2); Lymphocytes Percent Auto 20.7 % (18.3-44.2); Mean Corpuscular HGB Conc 33.3 g/dl (32-36); Mean Corpuscular Volume 96.1 fl (80-100); Mean Platelet Volume 8.5 fl (7.4-10.4); Monocytes Absolute Auto 1.6 K/mm3 (0.1-0.6); Monocytes Percent Auto 22.4 % (2.6-8.5); Neutrophils Absolute Auto 3.7 K/mm3 (1.3-6.7); Neutrophils Percent Auto 50.1 % (45.5-73.1); Platelet Count Result 322 k/mm3 (150-375); Red Blood Count 4.09 M/mm3 (4.6-6.20); Red Cell Distribution Width 13.1 % (11.5-14.5); White Blood Count 7.3 K/mm3 (4.5-10.0)
[2022-12-27 20:41] LABS: Alanine Aminotransferase 18 U/L (6-50); Albumin Level 3.5 g/dL (3.5-5.1); Alkaline Phosphatase 79 U/L (38-126); Anion Gap 11 mmol/L (8-16); Aspartate Amino Transferase 23 U/L (17-59); Bilirubin,Total 0.5 mg/dL (0.2-1.3); Blood Urea Nitrogen 21 mg/dL (9-20); Calcium 9.3 mg/dL (8.4-10.2); Carbon Dioxide 25 mmol/L (22-30); Chloride 91 mmol/L (98-107); Estimated CRCL calculation 63 ml/min; Estimated Glomerular Filt Rate > 60; Glucose 188 mg/dL (65-110); Potassium 4.7 mmol/L (3.4-5.0); Sodium 127 mmol/L (137-145)
[2022-12-27 22:04] LABS: Lactic Acid Reflex 0.7 mmol/L (0.7-2.0)
[2022-12-27 22:11] LABS: NT Pro B Type Natriuretic Pept 25 pg/mL (19.9-100); Troponin I < 0.012 ng/mL (0.000-0.034)
[2022-12-27 22:17] LABS: Alveolar/Arterial O2 Gradient 36.6 mmHg; Base Excess ABG -1.2 mEq/l (+/-2.0); Fractional Inspired Oxygen 21 %; HCO3 ABG 21.5 mEq/l (22.0-26.0); Oxygen Content ABG 15.3 %vol (16.0-22.0); Oxygen Saturation ABG 96.3 % (95.0-100.0); Oxyhemoglobin 89.3 % THb (90.0-100.0); PCO2 ABG 29.9 mmHg (35.0-45.0); PO2 ABG 77.3 mmHg (80.0-100.0); PO2 FiO2 Ratio Arterial Blood 3.68 %; Total Hemoglobin 12.1 g/dL (12.0-18.0); pH ABG 7.475 (7.350-7.450)
[2022-12-27 22:19] LABS: Modified Allen's Test Pass; Site Drawn LEFT RADIAL
[2022-12-27 22:43] LABS: Procalcitonin 0.1 ng/mL
--- NOTE | 2022-12-27 23:04 | PC.NURSE ---
This RN placed pt on 2L NC as pt was satting 88-89% while sleeping. Pt is now 96% on 2L. EDP aware.
[2022-12-28 00:01] VITALS: BP 106/62; PULSE 109; RESP 20; O2SAT 95
[2022-12-28 00:12] LABS: Troponin I 0.018 ng/mL (0.000-0.034)
[2022-12-28 00:20] VITALS: O2SAT 94
--- NOTE | 2022-12-28 00:20 | PC.NURSE ---
This RN removed pt off of o2 as he was satting 95% on room air. EDP aware. This RN rechecked BG, read 115 mg/dL. Pt provided cracker, milk, and PB per his request.
[2022-12-28 00:31] LABS: Glucose Point of Care 115 mg/dl (65-105)
[2022-12-28 00:33] VITALS: BP 130/87; PULSE 113; RESP 17; O2SAT 96
[2022-12-28 00:46] VITALS: BP 139/84; PULSE 118; RESP 17
[2022-12-28 01:07] VITALS: BP 110/78; PULSE 120; RESP 26; O2SAT 93
== END 2022-12-28 01:27 | disposition home or self-care (01) ==
PROVIDERS: Emergency Provider Emergency Medicine
DX: E11.65 Type 2 diabetes mellitus with hyperglycemia (principal); E86.0 Dehydration; K86.89 Other specified diseases of pancreas; J43.9 Emphysema, unspecified; R10.13 Epigastric pain; I10 Essential (primary) hypertension; K86.1 Other chronic pancreatitis; Z86.73 Personal history of transient ischemic attack (TIA), and cerebral infarction without residual deficits; Z79.84 Long term (current) use of oral hypoglycemic drugs
CPT/HCPCS: 36415; 36600; 71275; 80053; 81003; 82805; 82948; 83036; 83605; 83880; 84145; 84484; 85025; 94640; 96360; 96361; 99284; J7030; Q9967

== ENCOUNTER 2022-12-28 09:57 | Emergency (ER) | payer OTHER, SELFPAY ==
[2022-12-28] VITALS (34 sets, daily range): BP systolic 122–155; BP diastolic 60–77; PULSE 101–130; RESP 16–108; O2SAT 88–100
[2022-12-28 10:13] LABS: Glucose Point of Care 498 mg/dl (65-105)
[2022-12-28 10:27] LABS: Appearance Urine Clear (Clear); Bilirubin Urine Negative (Negative); Blood Urine Negative (Negative); Color Urine Yellow (Yellow); Glucose Urine UA 3+ mg/dL (Negative); Ketones Urine 1+ mg/dL (Negative); Leukocyte Esterase Ur Negative LEU/UL (Negative); Nitrate Urine Negative (Negative); Protein Urine Negative (Negative); Specific Grav Ur 1.032 (1.001-1.035); Urobilinogen Urine 0.2 mg/dL (<2.0)
[2022-12-28 10:36] LABS: Add Urine Microscopic? NO
[2022-12-28] MEDS: SODIUM CHLORIDE 0.9% IV 1,000 ML 999 ML IV CONT ×2 (11:32→11:36)
[2022-12-28 11:55] LABS: Basophils Absolute Auto 0.1 K/mm3 (0.0-0.1); Basophils Percent Auto 1.4 % (0.2-1.2); Eosinophils Absolute Auto 0.1 K/mm3 (0-0.3); Hematocrit 40.3 % (42.0-52.0); Hemoglobin 13.9 g/dL (14.0-18.0); Immature Granulocyte Absolute 0.18 K/mm3 (0.00-0.031); Immature Granulocyte Percent A 2.8 % (0-0.5); Lymphocytes Absolute Auto 1.04 K/mm3 (0.9-3.2); Lymphocytes Percent Auto 15.9 % (18.3-44.2); Mean Corpuscular HGB Conc 34.5 g/dl (32-36); Mean Corpuscular Hemoglobin 32.5 pg (26-34); Mean Corpuscular Volume 94.2 fl (80-100); Mean Platelet Volume 8.7 fl (7.4-10.4); Monocytes Absolute Auto 1.1 K/mm3 (0.1-0.6); Monocytes Percent Auto 16.5 % (2.6-8.5); Neutrophils Percent Auto 61.4 % (45.5-73.1); Platelet Count Result 372 k/mm3 (150-375); Red Blood Count 4.28 M/mm3 (4.6-6.20); White Blood Count 6.5 K/mm3 (4.5-10.0)
[2022-12-28 12:04] LABS: Alanine Aminotransferase 18 U/L (6-50); Albumin Level 3.7 g/dL (3.5-5.1); Alkaline Phosphatase 89 U/L (38-126); Anion Gap 10 mmol/L (8-16); Aspartate Amino Transferase 25 U/L (17-59); Bilirubin,Total 0.6 mg/dL (0.2-1.3); Blood Urea Nitrogen 16 mg/dL (9-20); Calcium 9.3 mg/dL (8.4-10.2); Carbon Dioxide 26 mmol/L (22-30); Chloride 90 mmol/L (98-107); Estimated CRCL calculation 95 ml/min; Estimated Glomerular Filt Rate > 60; Glucose 346 mg/dL (65-110); Potassium 4.6 mmol/L (3.4-5.0); Sodium 126 mmol/L (137-145)
[2022-12-28 12:05] LABS: Lactic Acid Reflex 0.9 mmol/L (0.7-2.0)
--- NOTE | 2022-12-28 12:15 | ED.GENADULT ---
HPI - General Adult General Chief complaint: Recheck/Abnormal Lab/Rx Stated complaint: high blood sugar Time Seen by Provider: 12/28/22 10:15 History of Present Illness HPI narrative: 57-year-old male presented the emergency department for evaluation of elevated blood sugars. Patient had a recent hospital admission with discharge 12/24. Patient had been admitted for esophagitis gastritis and DKA, patient is type II diabetic. Patient states that he began having some elevated blood sugars this morning and presented to the ED for evaluation. Patient has been taking his metformin as directed. Related Data Home Medications Medication Instructions Recorded Confirmed Depakote ER 2,000 mg PO HS 12/18/22 12/18/22 albuterol 90 mcg/actuation aerosol 90 mcg inhalation QID PRN 12/18/22 12/18/22 inhaler Shortness Of Breath amlodipine 5 mg tablet 5 mg PO DAILY 12/18/22 12/18/22 atorvastatin 80 mg tablet 80 mg PO HS 12/18/22 12/18/22 cyclobenzaprine 10 mg tablet 10 mg PO TID PRN Muscle Spasm 12/18/22 12/18/22 empagliflozin 25 mg tablet 25 mg PO DAILY 12/18/22 12/18/22 ferrous sulfate 325 mg (65 mg 325 mg PO BID 12/18/22 12/18/22 iron) tablet fluticasone 250 mcg-salmeterol 50 250 inh inhalation BID 12/18/22 12/18/22 mcg/dose blistr powdr for inhalation folic acid 1 mg tablet 1 mg PO DAILY 12/18/22 12/18/22 hydroxyzine HCl 25 mg tablet 25 mg PO BID PRN Anxiety 12/18/22 12/18/22 latanoprost 0.005 % eye drops 0.005 drp EACH EYE HS 12/18/22 12/18/22 levetiracetam 1,000 mg tablet 1,000 mg PO BID 12/18/22 12/18/22 (Keppra) lisinopril 2.5 mg tablet 2.5 mg PO DAILY 12/18/22 12/18/22 magnesium oxide 400 mg PO BID 12/18/22 12/18/22 mecobalamin (vitamin B12) 500 mcg 500 mcg PO DAILY 12/18/22 12/18/22 chewable tablet melatonin 3 mg tablet 3 mg PO HS 12/18/22 12/18/22 metformin 1,000 mg tablet 1,000 mg PO BID 12/18/22 12/18/22 mirtazapine 30 mg tablet 30 mg PO HS 12/18/22 12/18/22 pioglitazone 45 mg tablet 50 mg PO DAILY 12/18/22 12/18/22 primidone 50 mg tablet See Rx Instructions .Route .COMPLEX 12/18/22 12/18/22 propranolol 20 mg tablet 20 mg PO Q12H 12/18/22 12/18/22 thiamine HCl (vitamin B1) 100 mg 100 mg PO DAILY 12/18/22 12/18/22 tablet tiotropium bromide 1.25 2 puff inhalation DAILY 12/18/22 12/18/22 mcg/actuation mist for inhalation (Spiriva Respimat) trazodone 100 mg tablet 200 mg PO HS 12/18/22 12/18/22 Allergies Allergy/AdvReac Type Severity Reaction Status Date / Time gabapentin Allergy Unknown Verified 12/28/22 10:08 Review of Systems Review of Systems: All systems reviewed & are unremarkable except as noted in HPI and below PMFSH Past Medical History Medical History Cerebrovascular accident x2 Chronic pancreatitis COPD (chronic obstructive pulmonary disease) DKA (diabetic ketoacidosis) Hypertension Marijuana use Tobacco abuse Type 2 diabetes mellitus Surgical History Surgical History No history of previous surgery Family History Family History Other Diabetes mellitus Social History Social History Social History: Surrogate medical decision maker: Nitin Nixon, son. Code status: Full code. Smoking packs per day: 3 Smoking cigarettes per day: 60.0 Years smoked: 45 Smoking pack-years: 135.00 Smoking status: Current every day smoker Alcohol intake: never Substance use type: marijuana Lack of Transportation: No Lack of Food: Never True Current Housing: I Have Housing Concerned About Future Housing: No Difficulty Paying Gas/Electric Bills: No Difficulty Paying for Meds: No Currently Unemployed: No Education: Grade School Difficulty w/ Childcare or Family Care: No Spiritual care concerns: No Exam Narrative: APPEARANCE: Well appearing,
[2022-12-28] MEDS: ALBUTEROL SULFATE NEB 2.5 MG/3 ML INH 5 MG INHALATION (12:28)
[2022-12-28 12:48] LABS: Glucose Point of Care 250 mg/dl (65-105)
[2022-12-28 13:09] LABS: Hemoglobin A1C 11.8 % (<5.7)
== END 2022-12-28 15:35 | disposition home or self-care (01) ==
PROVIDERS: Emergency Provider Emergency Medicine
DX: E11.65 Type 2 diabetes mellitus with hyperglycemia (principal); J44.9 Chronic obstructive pulmonary disease, unspecified; I10 Essential (primary) hypertension; F17.210 Nicotine dependence, cigarettes, uncomplicated; Z86.73 Personal history of transient ischemic attack (TIA), and cerebral infarction without residual deficits; Z79.899 Other long term (current) drug therapy
CPT/HCPCS: 36415; 80053; 81003; 82948; 83036; 83605; 85025; 94640; 96360; 99283; J7030

== ENCOUNTER 2023-02-22 15:37 | Emergency (ER) | payer OTHER, SELFPAY ==
[2023-02-22] VITALS (45 sets, daily range): BP systolic 121–143; BP diastolic 64–77; PULSE 89–111; RESP 11–40; TEMP 36.5; O2SAT 82–97
--- NOTE | ~2023-02-22 | XR_ITS ---
EXAMINATION: XR chest 1V portable Exam Date/Time: 02/22/2023 19:00 [employer] WORK[employer] HISTORY: r/o pna Comparison: 12/21/2022. RESULT: Lines, tubes, and devices: None. Lungs and pleura: Senescent and emphysematous change.. Cardiomediastinal silhouette: Stable. Other: No acute osseous or upper abdominal finding. IMPRESSION: No acute cardiopulmonary process. Reviewed, dictated and finalized at location [facility]. [employer] WORK[employer]
[2023-02-22 15:45] LABS: Glucose Point of Care 459 mg/dl (65-105)
[2023-02-22 17:39] LABS: Glucose Point of Care 276 mg/dl (65-105)
--- NOTE | 2023-02-22 18:08 | ED.GENADULT ---
HPI - General Adult General Chief complaint: Recheck/Abnormal Lab/Rx Stated complaint: hyperglycemic Time Seen by Provider: 02/22/23 17:59 History of Present Illness HPI narrative: Patient is a 57-year-old male who presents to the emergency department this afternoon complaining of elevated blood sugars. Patient states that his sugars at home have been running in the 400 despite him taking all of his diabetic medications which are 3 different medications. Patient denies any chest pain, shortness of breath, nausea, vomiting, abdominal pain, dysuria, hematuria, constipation, diarrhea, melena, hematochezia, fevers or chills. He also denies any headaches, dizziness, lightheadedness, blurry visions, dizziness, focal weakness, numbness and or tingling. There are no other modifying, alleviating, or precipitating factors at this time. Related Data Home Medications Medication Instructions Recorded Confirmed Depakote ER 2,000 mg PO HS 12/18/22 12/18/22 albuterol 90 mcg/actuation aerosol 90 mcg inhalation QID PRN 12/18/22 12/18/22 inhaler Shortness Of Breath amlodipine 5 mg tablet 5 mg PO DAILY 12/18/22 12/18/22 atorvastatin 80 mg tablet 80 mg PO HS 12/18/22 12/18/22 cyclobenzaprine 10 mg tablet 10 mg PO TID PRN Muscle Spasm 12/18/22 12/18/22 empagliflozin 25 mg tablet 25 mg PO DAILY 12/18/22 12/18/22 ferrous sulfate 325 mg (65 mg 325 mg PO BID 12/18/22 12/18/22 iron) tablet fluticasone 250 mcg-salmeterol 50 250 inh inhalation BID 12/18/22 12/18/22 mcg/dose blistr powdr for inhalation folic acid 1 mg tablet 1 mg PO DAILY 12/18/22 12/18/22 hydroxyzine HCl 25 mg tablet 25 mg PO BID PRN Anxiety 12/18/22 12/18/22 latanoprost 0.005 % eye drops 0.005 drp EACH EYE HS 12/18/22 12/18/22 levetiracetam 1,000 mg tablet 1,000 mg PO BID 12/18/22 12/18/22 (Keppra) lisinopril 2.5 mg tablet 2.5 mg PO DAILY 12/18/22 12/18/22 magnesium oxide 400 mg PO BID 12/18/22 12/18/22 mecobalamin (vitamin B12) 500 mcg 500 mcg PO DAILY 12/18/22 12/18/22 chewable tablet melatonin 3 mg tablet 3 mg PO HS 12/18/22 12/18/22 metformin 1,000 mg tablet 1,000 mg PO BID 12/18/22 12/18/22 mirtazapine 30 mg tablet 30 mg PO HS 12/18/22 12/18/22 pioglitazone 45 mg tablet 50 mg PO DAILY 12/18/22 12/18/22 primidone 50 mg tablet See Rx Instructions .Route .COMPLEX 12/18/22 12/18/22 propranolol 20 mg tablet 20 mg PO Q12H 12/18/22 12/18/22 thiamine HCl (vitamin B1) 100 mg 100 mg PO DAILY 12/18/22 12/18/22 tablet tiotropium bromide 1.25 2 puff inhalation DAILY 12/18/22 12/18/22 mcg/actuation mist for inhalation (Spiriva Respimat) trazodone 100 mg tablet 200 mg PO HS 12/18/22 12/18/22 Allergies Allergy/AdvReac Type Severity Reaction Status Date / Time gabapentin Allergy Unknown Verified 12/28/22 10:08 Review of Systems Review of Systems: All systems are reviewed and are negative unless stated otherwise in the HPI. [facility] Past Medical History Medical History Cerebrovascular accident x2 Chronic pancreatitis COPD (chronic obstructive pulmonary disease) DKA (diabetic ketoacidosis) Hypertension Marijuana use Tobacco abuse Type 2 diabetes mellitus Surgical History Surgical History No history of previous surgery Family History Family History Other Diabetes mellitus Social History Social History Social History: Surrogate medical decision maker: Nitin Nixon, son. Code status: Full code. Smoking packs per day: 3 Smoking cigarettes per day: 60.0 Years smoked: 45 Smoking pack-years: 135.00 Smoking status: Current every day smoker Alcohol intake: never Substance use type: marijuana Lack of Transportation: No Lack of Food: Never True Current Housing: I Have Housing Concerned About Future Housing: No Diff
[2023-02-22] MEDS: SODIUM CHLORIDE 0.9% IV 1,000 ML 999 ML IV CONT ×2 (18:38→19:27)
[2023-02-22 18:47] LABS: Basophils Percent Auto 0.5 % (0.2-1.2); Eosinophils Absolute Auto 0.1 K/mm3 (0-0.3); Eosinophils Percent Auto 1.1 % (0-4.4); Hematocrit 43.9 % (42.0-52.0); Hemoglobin 14.8 g/dL (14.0-18.0); Immature Granulocyte Absolute 0.03 K/mm3 (0.00-0.031); Immature Granulocyte Percent A 0.4 % (0-0.5); Lymphocytes Absolute Auto 2.03 K/mm3 (0.9-3.2); Lymphocytes Percent Auto 27.9 % (18.3-44.2); Mean Corpuscular HGB Conc 33.7 g/dl (32-36); Mean Corpuscular Hemoglobin 31.8 pg (26-34); Mean Corpuscular Volume 94.4 fl (80-100); Mean Platelet Volume 8.9 fl (7.4-10.4); Monocytes Absolute Auto 0.7 K/mm3 (0.1-0.6); Neutrophils Absolute Auto 4.4 K/mm3 (1.3-6.7); Neutrophils Percent Auto 60.1 % (45.5-73.1); Platelet Count Result 178 k/mm3 (150-375); Red Blood Count 4.65 M/mm3 (4.6-6.20); Red Cell Distribution Width 12.9 % (11.5-14.5); White Blood Count 7.3 K/mm3 (4.5-10.0)
[2023-02-22 18:53] LABS: Appearance Urine Clear (Clear); Bilirubin Urine Negative (Negative); Blood Urine Negative (Negative); Color Urine Yellow (Yellow); Glucose Urine UA 3+ mg/dL (Negative); Ketones Urine 1+ mg/dL (Negative); Leukocyte Esterase Ur Negative LEU/UL (Negative); Nitrate Urine Negative (Negative); Protein Urine Negative (Negative); Specific Grav Ur 1.028 (1.001-1.035); Urobilinogen Urine 0.2 mg/dL (<2.0); pH Urine 6.5 (5.0-9.0)
[2023-02-22 18:58] LABS: Add Urine Microscopic? NO
[2023-02-22 19:02] LABS: Alanine Aminotransferase 20 U/L (6-50); Albumin Level 3.8 g/dL (3.5-5.1); Alkaline Phosphatase 70 U/L (38-126); Anion Gap 11 mmol/L (8-16); Aspartate Amino Transferase 24 U/L (17-59); Bilirubin,Total 0.5 mg/dL (0.2-1.3); Blood Urea Nitrogen 25 mg/dL (9-20); Calcium 8.7 mg/dL (8.4-10.2); Carbon Dioxide 22 mmol/L (22-30); Chloride 96 mmol/L (98-107); Estimated CRCL calculation 104 ml/min; Estimated Glomerular Filt Rate > 60; Glucose 218 mg/dL (65-110); Magnesium 1.7 mg/dL (1.6-2.3); Phosphorus 4.1 mg/dL (2.5-4.5); Potassium 4.5 mmol/L (3.4-5.0); Sodium 129 mmol/L (137-145)
[2023-02-22 19:03] LABS: Beta-Hydroxybutyrate/Acetoacetate 1.57 mmol/L (0.02-0.27)
== END 2023-02-22 20:58 | disposition home or self-care (01) ==
PROVIDERS: Emergency Provider Emergency Medicine
DX: E86.0 Dehydration (principal); E11.65 Type 2 diabetes mellitus with hyperglycemia; J44.9 Chronic obstructive pulmonary disease, unspecified; I10 Essential (primary) hypertension; F17.210 Nicotine dependence, cigarettes, uncomplicated; Z86.73 Personal history of transient ischemic attack (TIA), and cerebral infarction without residual deficits
CPT/HCPCS: 36415; 71045; 80053; 81003; 82010; 82948; 83735; 84100; 85025; 96360; 96361; 99283; J7030